=== PATIENT | female | born 1995 | race Caucasian/White ===

== ENCOUNTER 2022-02-18 13:14 | Emergency (ER) | payer BC, SELFPAY ==
[2022-02-18 13:20] VITALS: BP 127/81; PULSE 73; RESP 16; TEMP 37; O2SAT 97; BMI 33.5
--- NOTE | 2022-02-18 13:55 | HMH.EDGENADL ---
Discharge Plan Disposition Patient Disposition: Home, Self-Care Condition: Good Chief Complaint: Headache Referrals Follow up/Referrals: Casimiro Kearney APRN [Primary Care Provider] - See instructions Clinical Impressions Clinical Impression: Migraine Instructions Patient Instructions: DI for Migraine Discharge ED Provider: Enrique Avery General Adult HPI General Chief complaint: Headache Stated complaint: miagraine Time Seen by Provider: 02/18/22 13:20 Mode of Arrival: Ambulatory Source of Information: Patient Limitations: No Limitations Description of Symptoms (Recalled from ER Triage Doc. by RN): pt reports migraine x3 days, pt reports took 2 imitrex tablets on of this week with no relieft. Pt reports n/v, light/sound sensitivity and no appetite. History of Present Illness HPI narrative: 26-year-old female past history of migraines, postconcussive syndrome, pseudotumor cerebri, not currently on maintenance medication, states she has a procedure scheduled for next month to address that. She states she gets intermittent migraines, presents with 3 days of global headache that is typical of her usual migraines associated with nausea, photophobia and sound sensitivity. Denies neck pain, fevers, chills, any recent trauma, change in vision. She took 2 Imitrex tablets on with no relief. Related Data Allergies Allergy/AdvReac Type Severity Reaction Status Date / Time No Known Allergies Allergy Unverified 02/06/17 14:07 [facility] Disclaimer: The information contained in this section may have been updated after the patient was seen, as this information can be updated by other users. Social History Smoking Status: Never smoker alcohol intake: former current occupational status: other Travel in the last 8 weeks: None ROS Obtained: Yes Systems reviewed as appropriate & no additional complaints except as documented Constitutional Constitutional: Reports system reviewed and no additional complaints, except as documented Eyes Eyes: Reports system reviewed and no additional complaints, except as documented ENT Ears, Nose, Mouth, and Throat: Reports system reviewed and no additional complaints, except as documented Cardiovascular Cardiovascular: Reports system reviewed and no additional complaints, except as documented Respiratory Respiratory: Reports system reviewed and no additional complaints, except as documented Gastrointestinal Gastrointestingal: Reports system reviewed and no additional complaints, except as documented Genitourinary Female Genitourinary: Reports system reviewed and no additional complaints, except as documented Musculoskeletal Musculoskeletal: Reports system reviewed and no additional complaints, except as documented Integumentary/Breasts Skin/Breast: Reports system reviewed and no additional complaints, except as documented Neurologic Neurologic: Reports system reviewed and no additional complaints, except as documented Endocrine Endocrine: Reports system reviewed and no additional complaints, except as documented Hematologic/Lymphatic Henatologic/Lymphatic: Reports system reviewed and no additional complaints, except as documented Allergic/Immunologic Allergic/Immunologic: Reports system reviewed and no additional complaints, except as documented Physical Exam General General appearance: alert and in no apparent distress Head Head exam: atraumatic, normocephalic and normal inspection Eye Eye exam: Present normal appearance, PERRL and EOMI ENT ENT exam: Present normal exam, normal oropharynx, mucous membranes moist, TM's normal bilaterally and normal external ear exam Neck Neck exam: Present normal inspection, full ROM and trachea midline; Absent meningismus or lymphadenopathy Chest Chest inspection: Present normal inspection and symmetric chest wall rise; Absent tenderness Respiratory Respiratory exam:
[2022-02-18 14:00] VITALS: BP 135/82; PULSE 76; RESP 16; O2SAT 96
[2022-02-18 14:31] VITALS: BP 115/75; PULSE 60; RESP 16; O2SAT 96
[2022-02-18 15:01] VITALS: BP 122/75; PULSE 63; RESP 15; O2SAT 98
[2022-02-18 15:30] VITALS: BP 132/82; PULSE 76; RESP 16; O2SAT 100
--- NOTE | 2022-02-18 16:03 | PC.NURSE ---
pt reports feeling better, sitting up on side of the bed
[2022-02-18 16:10] VITALS: BP 132/82; PULSE 76; RESP 16; TEMP 37; O2SAT 100
== END 2022-02-18 16:10 | disposition home or self-care (01) ==
PROVIDERS: Emergency Provider Emergency Medicine; PCP Nurse Practitioner Family
DX: G43.909 Migraine, unspecified, not intractable, without status migrainosus (principal); R11.2 Nausea with vomiting, unspecified; H53.149 Visual discomfort, unspecified; G93.2 Benign intracranial hypertension
CPT/HCPCS: 96361; 96374; 96375; 99284

== ENCOUNTER 2022-04-25 19:50 | Emergency (ER) | payer BC, SELFPAY ==
--- NOTE | 2022-04-25 19:52 | ECG_ITS ---
APPROVED REPORT Exam: Resting ECG HR:84 bpm ECG Measurements Heart Rate 84 AXES MN 167 P 69 QRSd 98 QRS 72 QT 370 T 20 QTc 411 Conclusion SINUS RHYTHM NONSPECIFIC ST & T-WAVE ABNORMALITY BORDERLINE ECG UNCONFIRMED REPORT Electronically signed by : Joo Almendarez MD 04/26/2022 17:59:33
[2022-04-25 19:55] VITALS: BP 163/98; PULSE 85; RESP 22; TEMP 36.5; O2SAT 100; BMI 30.7
[2022-04-25 19:58] VITALS: BMI 30.7
--- NOTE | 2022-04-25 19:59 | XR_ITS ---
PROCEDURE INFORMATION: Exam: XR Chest Exam date and time: 04/25/2022 8:18 PM Age: 27 years old Clinical indication: Shortness of breath; Patient HX: PT C/O tachycardia, tingling in hands; Additional info: Dizziness TECHNIQUE: Imaging protocol: Radiologic exam of the chest. Views: 2 views. COMPARISON: CR CXR1 CHEST-PORTABLE 07/04/2015 10:33 PM FINDINGS: Lungs: Unremarkable. No consolidation. Pleural spaces: Unremarkable. No pleural effusion. No pneumothorax. Heart/Mediastinum: Unremarkable. No cardiomegaly. Bones/joints: Unremarkable. IMPRESSION: No acute findings.
[2022-04-25 20:12] VITALS: BP 137/76; BP 141/84; PULSE 80
--- NOTE | 2022-04-25 20:15 | CT_ITS ---
PROCEDURE INFORMATION: Exam: CTA Chest With Contrast Exam date and time: 04/25/2022 8:34 PM Age: 27 years old Clinical indication: Shortness of breath; Patient HX: PT C/O tachycardia, tingling in hands; Additional info: Shortness of air TECHNIQUE: Imaging protocol: Computed tomographic angiography of the chest with contrast. 3D rendering (Not supervised by radiologist): MIP and/or 3D reconstructed images were created by the technologist. Radiation optimization: All CT scans at this facility use at least one of these dose optimization techniques: automated exposure control; mA and/or kV adjustment per patient size (includes targeted exams where dose is matched to clinical indication); or iterative reconstruction. Contrast material: ISOVUE; Contrast volume: 70 ml; Contrast route: INTRAVENOUS (IV); REPORTING DATA: Count of CT and Cardiac NM exams in prior 12 months: This patient has received 0 known CTs and 0 known cardiac nuclear medicine studies in the 12 months prior to the current study. COMPARISON: CR XR CHEST 2V 04/25/2022 8:18 PM FINDINGS: Pulmonary arteries: Normal. No pulmonary emboli. Aorta: Unremarkable. No aortic aneurysm. No aortic dissection. Lungs: Unremarkable. No consolidation. No masses. Pleural spaces: Unremarkable. No pneumothorax. No pleural effusion. Heart: Unremarkable. No cardiomegaly. No pericardial effusion. Lymph nodes: Unremarkable. No enlarged lymph nodes. Bones/joints: Unremarkable. No acute fracture. Soft tissues: Unremarkable. IMPRESSION: No acute findings.
[2022-04-25 20:17] VITALS: BP 137/76; PULSE 92; RESP 12; O2SAT 96
[2022-04-25 20:17] LABS: Eosinophils % 0.9 % (0.1-12.0); Hematocrit 43.6 % (37.0-47.0); Lymphocytes # 1.4 K/mm3 (0.7-4.5); Lymphocytes % 31.6 % (10-50); Mean Corpuscular HGB Conc 34.4 g/dL (31.8-35.4); Mean Corpuscular Hemoglobin 29.3 pg (27.0-31.2); Mean Corpuscular Volume 84.9 fl (81-99); Mean Platelet Volume 9.2 fl (7.4-10.4); Monocytes # 0.3 K/mm3 (0.1-1.0); Monocytes % 7.8 % (1.7-9.3); Neutrophils # 2.5 K/mm3 (1.8-7.8); Neutrophils % 58.6 % (37.0-80.0); Platelet Count 267 K/mm3 (142-424); Red Blood Count 5.13 M/mm3 (4.20-5.40); Red Cell Distribution Width 13.5 % (11.5-17.5); White Blood Count 4.3 K/mm3 (4.8-10.8)
[2022-04-25 20:18] LABS: Chloride 100 mmol/L (98-107); Sodium 140 mmol/L (136-145)
[2022-04-25 20:21] VITALS: BP 151/97; PULSE 107
[2022-04-25 20:21] LABS: Alanine Aminotransferase 99 U/L (12-78); Alkaline Phosphatase 74 U/L (38-126); Aspartate Amino Transferase 74 U/L (14-36); Bilirubin,Total 1.8 mg/dl (0.2-1.3); Blood Urea Nitrogen 9 mg/dl (7-17); Creatinine Clearance Estimated 194 mL/min (50-200); Estimated Glomerular Filt Rate 102 ml/min (>60); GFR (African American) 123 ML/MIN (>60)
[2022-04-25 20:22] LABS: Albumin Level 4.7 g/dl (3.5-5.0); Albumin/Globulin Ratio 1.5 (1.1-1.8); Anion Gap 13.9 mEq/L (5-15); Calcium 9.4 mg/dl (8.4-10.2); Carbon Dioxide 29 mmol/L (22.0-30.0); Globulin 3.1 g/dL (1.3-3.2); Glucose 101 mg/dl (74-100); Total Protein,Serum 7.8 g/dl (6.3-8.2)
--- NOTE | 2022-04-25 20:22 | HMH.EDSYNC ---
Discharge Plan Disposition Patient Disposition: Home, Self-Care Chief Complaint: Syncope Prescriptions Prescriptions: No Action omeprazole 10 mg Capsule,Delayed Release(Dr/Ec) 10 mg PO BID iron 18 mg Tablet 18 mg PO DAILY calcium citrate 1,000 mg Tablet 1,200 mg PO DAILY cholecalciferol (vitamin D3) [Vitamin D3] 125 mcg (5,000 unit) Tablet 125 mcg PO DAILY mecobalamin (vitamin B12) [B12 Active] 1,000 mcg Tablet,Chewable 1,000 mcg PO DAILY Referrals Follow up/Referrals: Provider,Referral, MD [Referring] - See instructions Clinical Impressions Clinical Impression: Vasovagal syncope Instructions Patient Instructions: DI for Syncope in Adults (Fainting) Discharge ED Provider: Herman (ED)Jad Syncope HPI General Chief Complaint: Syncope Stated Complaint: heart racing Time Seen by Provider: 04/25/22 20:22 Mode of Arrival: Ambulatory Source of Information: Patient and Medical Record Limitations: No Limitations Description of Symptoms (Recalled from ER Triage Doc. by RN): pt c/o a racing heart, multiple syncopal episodes (the last was a few hours ago), SOA, tingling hands, and epistaxis (last episode around 1400 while working out). pt reports she had a gastric sleeve 03/16/22 at [facility] [address] Dr. Ambriz. pt states syhe has had heavy vaginal bleeding since 2d post op. pt spoke with her surgeon regarding this whom was not concerned. pt reports she had a follow up last wk and her platelets and wbc was low. History of Present Illness HPI narrative: episodes of ht racing and has near syncopal episodes - had recent surg 03/13 gastric sleeve - has reported vag bleeding - no chest pain and has some sob MD complaint: almost passed out Onset (ago): day(s) Prodromal symptoms: palpitations Current symptoms: back to baseline Related Data Home Medications Medication Instructions Recorded Confirmed calcium citrate 1,000 mg tablet 1,200 mg PO DAILY vitamin 04/25/22 04/25/22 cholecalciferol (vitamin D3) 125 125 mcg PO DAILY vitamin 04/25/22 04/25/22 mcg (5,000 unit) tablet (Vitamin D3) iron 18 mg tablet 18 mg PO DAILY vitamin 04/25/22 04/25/22 mecobalamin (vitamin B12) 1,000 1,000 mcg PO DAILY vitamin 04/25/22 04/25/22 mcg chewable tablet (B12 Active) omeprazole 10 mg capsule,delayed 10 mg PO BID Heartburn 04/25/22 04/25/22 release Allergies Allergy/AdvReac Type Severity Reaction Status Date / Time buspirone [From BuSpar] Allergy Hallucinati Verified 04/25/22 20:05 ng hydromorphone [From Dilaudid] Allergy Hallucinati Verified 04/25/22 20:05 ng promethazine [From Phenergan] Allergy Vomiting Verified 04/25/22 20:05 PFSH [facility] Disclaimer: The information contained in this section may have been updated after the patient was seen, as this information can be updated by other users. Social History (Updated 02/18/22 @ 15:28 by Enrique Avery MD) Smoking Status: Never smoker alcohol intake: former current occupational status: other Travel in the last 8 weeks: None ROS Obtained: Yes All systems reviewed & no additional complaints except as documented Physical Exam General General appearance: alert Head Head exam: normocephalic Eye Eye exam: Present PERRL and EOMI; Absent scleral icterus ENT ENT exam: Present mucous membranes moist and other (no evid of tongue biting ) Neck Neck exam: Present trachea midline Respiratory Respiratory exam: Present normal lung sounds bilaterally; Absent respiratory distress Cardiovascular Cardiovascular exam: Present regular rate and systolic murmur Abdominal Exam Abdominal exam: Present soft Extremities Exam Extremities exam: Present full ROM; Absent calf tenderness Neurological Exam Neurological exam: Present alert, oriented X3 and CN II-XII intact; Absent motor sensory deficit Psychiatric Psychiatric exam: Present normal affect Skin Skin exam: Absent rash Medical Decision Making Medical Records Medic
[2022-04-25 20:23] LABS: Potassium 2.9 mmoL/L (3.5-5.1)
[2022-04-25 20:45] LABS: Troponin I < 0.01 ng/ml (0.00-0.034)
[2022-04-25 20:53] LABS: Thyroid Stimulating Hormone 4.84 uIU/mL (0.465-4.68)
[2022-04-25 21:00] VITALS: BP 133/84; PULSE 78; RESP 21; O2SAT 97
[2022-04-25 21:35] VITALS: BP 132/82; PULSE 77; RESP 18; TEMP 36.6; O2SAT 99
[2022-04-25 21:42] LABS: Magnesium 1.8 mg/dl (1.6-2.3)
== END 2022-04-25 22:19 | disposition home or self-care (01) ==
PROVIDERS: Emergency Provider Emergency Medicine; PCP Nurse Practitioner Family
DX: R55 Syncope and collapse (principal)
CPT/HCPCS: 71046; 71275; 80053; 83735; 84436; 84443; 84484; 85025; 93005; 93225; 93226; 96361; 96374; 99285; J2405; Q9967

== ENCOUNTER 2022-08-07 11:30 | Emergency (ER) | payer BC, SELFPAY ==
[2022-08-07] VITALS (7 sets, daily range): BP systolic 117–144; BP diastolic 71–87; PULSE 56–79; RESP 17–20; TEMP 36.7–36.9; O2SAT 98–100; BMI 24.0
--- NOTE | 2022-08-07 11:32 | ECG_ITS ---
APPROVED REPORT Exam: Resting ECG HR:72 bpm ECG Measurements Heart Rate 72 AXES DC 160 P 78 QRSd 96 QRS 91 QT 392 T 84 QTc 416 Conclusion SINUS RHYTHM BORDERLINE RIGHT AXIS DEVIATION [QRS AXIS > 90] BORDERLINE ECG UNCONFIRMED REPORT Electronically signed by : Joo Almendarez MD 08/07/2022 17:10:54
[2022-08-07 12:00] LABS: Basophils % 0.4 % (0.1-2.0); Eosinophils % 0.7 % (0.1-12.0); Hematocrit 38.2 % (37.0-47.0); Hemoglobin 13.1 g/dL (12.2-16.2); Lymphocytes # 1.4 K/mm3 (0.7-4.5); Mean Corpuscular HGB Conc 34.4 g/dL (31.8-35.4); Mean Corpuscular Hemoglobin 30.2 pg (27.0-31.2); Mean Corpuscular Volume 87.8 fl (81-99); Mean Platelet Volume 8.5 fl (7.4-10.4); Monocytes # 0.3 K/mm3 (0.1-1.0); Monocytes % 5.7 % (1.7-9.3); Neutrophils # 3.3 K/mm3 (1.8-7.8); Neutrophils % 66.2 % (37.0-80.0); Platelet Count 208 K/mm3 (142-424); Red Blood Count 4.35 M/mm3 (4.20-5.40); Red Cell Distribution Width 13.1 % (11.5-17.5)
--- NOTE | 2022-08-07 12:00 | PC.NURSE ---
DR LONG AT BEDSIDE
--- NOTE | 2022-08-07 12:05 | PC.NURSE ---
MATTHEW ROWLAND at
[2022-08-07 12:06] LABS: Chloride 105 mmol/L (98-107); Lactic Acid 1.8 mmol/L (0.7-2.1); Potassium 3.2 mmoL/L (3.5-5.1); Sodium 143 mmol/L (136-145)
--- NOTE | 2022-08-07 12:06 | US_ITS ---
PROCEDURE INFORMATION: Exam: US Duplex Artery and Vein of the Abdominal and/or Reproductive Organs. Complete Ovaries Exam date and time: 08/07/2022 12:26 PM Age: 27 years old Clinical indication: Pelvic pain and other: Back; Prior surgery; Surgery date: 6+ months; Surgery type: Lt ov removed-- 2 csections; Patient HX: Rlq pain-- apendix and gb removed; Additional info: Rule out torsion, abd pain radiating to back TECHNIQUE: Imaging protocol: Real-time duplex ultrasound scan of the arterial and venous flow with color Doppler flow and spectral waveform analysis with image documentation. Complete duplex exam focused on the ovaries. Duplex exam was performed to evaluate for torsion and other vascular conditions. COMPARISON: CT ANGIO CHEST PE PROTOCOL 04/25/2022 8:34 PM FINDINGS: Right ovary/adnexa: Normal duplex of the ovary. Normal Doppler waveforms and color flow. Arterial and venous flow are normal. No evidence of ovarian torsion. Left ovary/adnexa: Normal duplex of the ovary. Normal Doppler waveforms and color flow. Arterial and venous flow are normal. No evidence of ovarian torsion. IMPRESSION: No evidence of ovarian torsion. PROCEDURE INFORMATION: Exam: US Pelvis, Transvaginal Exam date and time: 08/07/2022 12:26 PM Age: 27 years old Clinical indication: Pelvic pain and other: Back; Prior surgery; Surgery date: 6+ months; Surgery type: Lt ov removed-- 2 csections; Patient HX: Rlq pain-- apendix and gb removed; Additional info: Rule out torsion, abd pain radiating to back TECHNIQUE: Imaging protocol: Real-time transvaginal pelvic ultrasound with image documentation. Transvaginal imaging was used for better evaluation of the endometrium, adnexa, and/or cervix. COMPARISON: No relevant prior studies available. FINDINGS: Uterus: Uterus is normal in size and echotexture for age. scar incidentally noted. Endometrial stripe thickness is within normal limits for age. Small amount of complex fluid within the endometrial canal compatible with blood products, within normal limits for age. Color Doppler demonstrates no abnormal vascularity within the endometrial canal. Right ovary/adnexa: Right ovary is normal in size and echotexture. Color and spectral Doppler demonstrates normal ovarian arterial and venous blood flow. Left ovary/adnexa: Left ovary was not visualized. Intraperitoneal space: Trace simple, low-density free fluid in the pelvis, likely physiologic. IMPRESSION: No acute findings. No evidence of ovarian torsion.
--- NOTE | 2022-08-07 12:07 | PC.NURSE ---
notified rad staff of / order
[2022-08-07 12:08] LABS: Blood Urea Nitrogen 13 mg/dl (7-17); Creatinine Clearance Estimated 177 mL/min (50-200); Estimated Glomerular Filt Rate 122 ml/min (>60); GFR (African American) 147 ML/MIN (>60)
[2022-08-07 12:09] LABS: Alanine Aminotransferase 28 U/L (12-78); Albumin Level 4.7 g/dl (3.5-5.0); Albumin/Globulin Ratio 1.7 (1.1-1.8); Alkaline Phosphatase 60 U/L (38-126); Anion Gap 17.2 mEq/L (5-15); Aspartate Amino Transferase 28 U/L (14-36); Bilirubin,Total 2.1 mg/dl (0.2-1.3); Calcium 9.4 mg/dl (8.4-10.2); Carbon Dioxide 24 mmol/L (22.0-30.0); Globulin 2.7 g/dL (1.3-3.2); Glucose 94 mg/dl (74-100); Lipase 61 U/L (23-300); Total Protein,Serum 7.4 g/dl (6.3-8.2)
--- NOTE | 2022-08-07 12:12 | PC.NURSE ---
pt ambulatory to restroom without complications.
--- NOTE | 2022-08-07 12:17 | HMH.EDGENADL ---
Discharge Plan Disposition Patient Disposition: Home, Self-Care Condition: Good Chief Complaint: Syncope Prescriptions Prescriptions: No Action omeprazole 10 mg Capsule,Delayed Release(Dr/Ec) 10 mg PO BID iron 18 mg Tablet 18 mg PO DAILY calcium citrate 1,000 mg Tablet 1,200 mg PO DAILY cholecalciferol (vitamin D3) [Vitamin D3] 125 mcg (5,000 unit) Tablet 125 mcg PO DAILY mecobalamin (vitamin B12) [B12 Active] 1,000 mcg Tablet,Chewable 1,000 mcg PO DAILY Referrals Follow up/Referrals: Fabián Dorantes APRN [Primary Care Provider] - See instructions Activity Restrictions/Add. Instructions Additional Instructions/Restrictions: Take Tylenol 1000 mg every 6 hours (4 times daily) and ibuprofen 400 mg every 6 hours (4 times daily) as needed with food and water to prevent GI upset and kidney damage. Follow-up with your family doctor and/your [facility] for further characterization of abdominal pain. If you have any other concerning signs or symptoms, return to the ER for further evaluation. Clinical Impressions Clinical Impression: Abdominal pain Qualifiers: Abdominal location: left lower quadrant Qualified Code(s): R10.32 - Left lower quadrant pain Instructions Patient Instructions: DI for Syncope in Adults (Fainting), DI for Syncope in Children (Fainting) Discharge ED Provider: [place] General Adult HPI General Chief complaint: Syncope Stated complaint: abd pain Time Seen by Provider: 08/07/22 11:44 Mode of Arrival: EMS Limitations: No Limitations Description of Symptoms (Recalled from ER Triage Doc. by RN): PT BROUGHT IN VIA EMS FOR SEVERE ABDOMINAL PAIN AND 2 EPISODES OF SYNCOPE THIS AM. PT REPORTS CURRENTLY ON MENSTRUAL CYCLE, 2 WEEKS EARLY WITH ABNORMAL HEAVY VAGINAL BLEEDING. History of Present Illness HPI narrative: This is a 27-year-old female with history of gastric sleeve procedure in 2022, cholecystectomy, appendectomy, ovarian cyst/torsion, pseudotumor (resolved since gastric surgery), bilateral salpingectomy, left (?) Oophorectomy, presenting with abdominal pain. Patient states that she has had abdominal pain starting 2 days prior to arrival. Today, 08/07, it got acutely worse. It was 10 out of 10, left-sided and radiated through to her left flank. Associated with nausea without vomiting. Patient had syncopal episode, but remembers the entire incident. Denies any head trauma. Was brought to the ER for further evaluation. Dysuria without hematuria. Patient has had symptoms similar to this with previous periods, as well as with ovarian cyst rupture. Has been saturating about 1 pad per hour for the past 1 to 2 days. No other relevant history. Related Data Home Medications Medication Instructions Recorded Confirmed calcium citrate 1,000 mg tablet 1,200 mg PO DAILY vitamin 04/25/22 04/25/22 cholecalciferol (vitamin D3) 125 125 mcg PO DAILY vitamin 04/25/22 04/25/22 mcg (5,000 unit) tablet (Vitamin D3) iron 18 mg tablet 18 mg PO DAILY vitamin 04/25/22 04/25/22 mecobalamin (vitamin B12) 1,000 1,000 mcg PO DAILY vitamin 04/25/22 04/25/22 mcg chewable tablet (B12 Active) omeprazole 10 mg capsule,delayed 10 mg PO BID Heartburn 04/25/22 04/25/22 release Allergies Allergy/AdvReac Type Severity Reaction Status Date / Time buspirone [From BuSpar] Allergy Hallucinati Verified 04/25/22 20:05 ng hydromorphone [From Dilaudid] Allergy Hallucinati Verified 04/25/22 20:05 ng promethazine [From Phenergan] Allergy Vomiting Verified 04/25/22 20:05 PFSH [facility]SH Disclaimer: The information contained in this section may have been updated after the patient was seen, as this information can be updated by other users. Surgical History (Updated 08/07/22 @ 11:48 by Nataly Kelly RN) H/O bilateral salpingectomy H/O section H/O gastric sleeve H/O oophorectomy Hx of appendectomy Hx of cholecystectomy Hx of tonsillectomy Family History (Upd
--- NOTE | 2022-08-07 12:19 | PC.NURSE ---
pt ambulatory back from restroom without complications; no needs at this time. UA sent to lab. Spouse at BS
--- NOTE | 2022-08-07 12:21 | PC.NURSE ---
PT TO RADIOLOGY FOR U/S AT THIS TIME
[2022-08-07 12:25] LABS: Microscopic, Urine URINE MICROSCOPIC (MICROSCOPIC)
[2022-08-07 12:26] LABS: Urine Pregnancy, HCG Qual. Negative (Negative)
[2022-08-07 12:27] LABS: Appearance,Urine CLEAR (Clear); Blood, Urine Negative (Negative); Glucose,Urine (UA) Negative (Negative); Ketones,Urine 1+ (Negative); Leukocyte Esterase,Urine Negative (Negative); Nitrate,Urine POSITIVE (Negative); PH,Urine 5.5 (5.0-8.5); Protein,Urine TRACE (Negative); Specific Gravity, Urine >= 1.030 (1.005-1.030); Urobilinogen,Urine >=8.0 EU/dl (0.2)
[2022-08-07 12:29] LABS: Bilirubin,Urine 2+ (Negative); Color,Urine ORANGE (Yellow)
[2022-08-07 12:37] LABS: Bacteria,Urine 1+ /lpf; Calcium Oxalate Crystals,Urine Trace /lpf; Mucus,Urine 3+ /lpf; RBC,Urine Occasional #/hpf (0-3)
--- NOTE | 2022-08-07 12:51 | CT_ITS ---
FINAL REPORT TECHNIQUE: After the administration of intravenous contrast, axial images were obtained through the abdomen and pelvis by computed tomography. The study was performed with techniques to keep radiation dose as low as reasonably achievable, (ALARA). Individual dose reduction techniques using automated exposure control or adjustment of mA and/or kV according to the patient's size were employed. CLINICAL HISTORY: abd pain and syncope FINDINGS: Abdomen: The lung bases are clear. The liver parenchyma is homogeneous. There is some relative decreased attenuation in anterior left lobe of the liver which may be due to perfusion anomaly or focal fatty infiltration. The gallbladder is present. The spleen, pancreas, adrenals and kidneys appear unremarkable. The aorta is normal in caliber. There is no free fluid or adenopathy. Gastric sleeve is present. Pelvis: The appendix is not identified. The urinary bladder is unremarkable. The uterus is anteverted. There is a moderate amount of stool in the colon. There are postoperative changes in the right lower quadrant. There is no free fluid or adenopathy. IMPRESSION: Moderate constipation. Postoperative changes from gastric sleeve. Reviewed, Interpreted and Dictated by Jorge L Ortega MD Transcribed by Lorena Marrufo Authenticated and . [facility]
--- NOTE | 2022-08-07 13:14 | PC.NURSE ---
PT TO CT
--- NOTE | 2022-08-07 13:27 | PC.NURSE ---
PT from CT
--- NOTE | 2022-08-07 13:45 | PC.NURSE ---
ROUNDED ON PT, MEDICATED PER EMAR. UPDATED ON POC. NO NEEDS VOICED
--- NOTE | 2022-08-07 13:53 | PC.NURSE ---
Rounded on patient; spouse at BS, no needs at this time and are aware we are still waiting on test results at this time.
--- NOTE | 2022-08-07 14:39 | PC.NURSE ---
Called [facility] to reach the Radiologist that read report for a question. Awaiting call back
--- NOTE | 2022-08-07 14:51 | PC.NURSE ---
Dr. Ely speaking with Radiologist, Jorge L Ortega at this time
--- NOTE | 2022-08-07 15:14 | PC.NURSE ---
DR LONG AT BEDSIDE
== END 2022-08-07 15:35 | disposition home or self-care (01) ==
PROVIDERS: Emergency Provider Emergency Medicine; PCP Nurse Practitioner Family
DX: R10.32 Left lower quadrant pain (principal); R55 Syncope and collapse
CPT/HCPCS: 74177; 76830; 80053; 81001; 81025; 83605; 83690; 85025; 93005; 96361; 96374; 96375; 99285; J0696; J2405; Q9967

== ENCOUNTER 2022-10-15 23:49 | Day surgery (SDC) | payer BC, SELFPAY ==
[2022-10-15 23:50] VITALS: BP 134/86; PULSE 69; RESP 18; TEMP 36.8; O2SAT 97; BMI 22.3
[2022-10-16] VITALS (26 sets, daily range): BP systolic 93–133; BP diastolic 54–87; PULSE 39–101; RESP 12–20; TEMP 36.1–36.6; O2SAT 94–100
--- NOTE | 2022-10-16 00:20 | CT_ITS ---
PROCEDURE INFORMATION: Exam: CT Abdomen And Pelvis With Contrast Exam date and time: 10/16/2022 12:52 AM Age: 27 years old Clinical indication: Abdominal pain; Additional info: Lower abd pain, HX gastric sleeve/oopharectomy TECHNIQUE: Imaging protocol: Computed tomography of the abdomen and pelvis with contrast. Radiation optimization: All CT scans at this facility use at least one of these dose optimization techniques: automated exposure control; mA and/or kV adjustment per patient size (includes targeted exams where dose is matched to clinical indication); or iterative reconstruction. Contrast material: ISOVUE; Contrast volume: 75 ml; Contrast route: IV; REPORTING DATA: Count of CT and Cardiac NM exams in prior 12 months: This patient has received 2 known CTs and 0 known cardiac nuclear medicine studies in the 12 months prior to the current study. COMPARISON: CT ABDOMEN PELVIS W CON 08/07/2022 1:21 PM FINDINGS: Lungs: Clear basilar lung parenchyma. Pleural spaces: No pleural fluid. Heart: Normal heart size. Liver: Focal fat noted along the falciform ligament. Gallbladder and bile ducts: Prior cholecystectomy. No biliary tree dilation or high-density retained stones appreciated. Pancreas: Normal. No ductal dilation. Spleen: Normal. No splenomegaly. Adrenal glands: Normal configuration. Kidneys and ureters: No evidence of obstruction. No visible inflammation. Stomach and bowel: Prior gastric sleeve procedure. Normal caliber small bowel. Appendix: Prior appendectomy. Intraperitoneal space: Moderate volume slightly hyperdense pelvic free fluid is compelling for blood. Vasculature: Normal caliber arterial structures. Lymph nodes: No enlarged lymph nodes. Urinary bladder: Unremarkable as visualized. Reproductive: Enhancing crenulated cyst in the right ovary is compatible with recently ruptured follicle. Bones/joints: No fracture or destructive lesion. Soft tissues: A small contrast blush anterior to the collapsing follicle is concerning for active bleeding. IMPRESSION: Exam demonstrates a recently ruptured right ovarian follicle with adjacent low volume hemoperitoneum. There is also a contrast blush adjacent to the ovary concerning for active bleeding.
[2022-10-16 00:26] LABS: Microscopic, Urine URINE MICROSCOPIC (MICROSCOPIC)
[2022-10-16 00:28] LABS: Appearance,Urine SL CLOUDY (Clear); Bilirubin,Urine Negative (Negative); Blood, Urine TRACE-I (Negative); Color,Urine YELLOW (Yellow); Glucose,Urine (UA) Negative (Negative); Ketones,Urine TRACE (Negative); Leukocyte Esterase,Urine 1+ (Negative); Nitrate,Urine Negative (Negative); Protein,Urine 2+ (Negative); Specific Gravity, Urine >= 1.030 (1.005-1.030)
[2022-10-16 00:30] LABS: Basophils % 0.5 % (0.1-2.0); Eosinophils # 0.1 K/mm3 (0.0-0.4); Eosinophils % 1.7 % (0.1-12.0); Hemoglobin 13.6 g/dL (12.2-16.2); Lymphocytes # 2.1 K/mm3 (0.7-4.5); Lymphocytes % 43.6 % (10-50); Mean Corpuscular HGB Conc 33.1 g/dL (31.8-35.4); Mean Corpuscular Hemoglobin 30.2 pg (27.0-31.2); Mean Corpuscular Volume 91.1 fl (81-99); Mean Platelet Volume 8.1 fl (7.4-10.4); Monocytes # 0.2 K/mm3 (0.1-1.0); Monocytes % 4.5 % (1.7-9.3); Neutrophils # 2.4 K/mm3 (1.8-7.8); Neutrophils % 49.7 % (37.0-80.0); Platelet Count 180 K/mm3 (142-424); Red Blood Count 4.49 M/mm3 (4.20-5.40); Red Cell Distribution Width 12.3 % (11.5-17.5); White Blood Count 4.9 K/mm3 (4.8-10.8)
[2022-10-16 00:35] LABS: Alanine Aminotransferase 31 U/L (12-78); Albumin Level 5.2 g/dl (3.5-5.0); Albumin/Globulin Ratio 1.4 (1.1-1.8); Alkaline Phosphatase 57 U/L (38-126); Anion Gap 16.3 mEq/L (5-15); Aspartate Amino Transferase 34 U/L (14-36); Blood Urea Nitrogen 15 mg/dl (7-17); Calcium 9.8 mg/dl (8.4-10.2); Carbon Dioxide 27 mmol/L (22.0-30.0); Chloride 104 mmol/L (98-107); Creatinine Clearance Estimated 141 mL/min (50-200); Estimated Glomerular Filt Rate 102 ml/min (>60); GFR (African American) 123 ML/MIN (>60); Globulin 3.6 g/dL (1.3-3.2); Glucose 93 mg/dl (74-100); Lipase 71 U/L (23-300); Potassium 3.3 mmoL/L (3.5-5.1); Sodium 144 mmol/L (136-145); Total Protein,Serum 8.8 g/dl (6.3-8.2)
[2022-10-16 00:42] LABS: Urine Pregnancy, HCG Qual. Negative (Negative)
[2022-10-16 00:54] LABS: Bacteria,Urine 1+ /lpf; RBC,Urine Occasional #/hpf (0-3); Squamous Epithelial Cell,Urine Occasional #/hpf (0-5)
--- NOTE | 2022-10-16 01:11 | HMH.EDGENADL ---
Discharge Plan Disposition Patient Disposition: Home, Self-Care Condition: Good Prescriptions Prescriptions: New cefdinir 300 mg capsule 300 mg PO BID 5 Days Qty: 10 0RF ondansetron HCl 4 mg tablet 4 mg PO Q8H PRN (Reason: nausea and vomiting) 5 Days Qty: 30 0RF ibuprofen 800 mg tablet 800 mg PO Q8H PRN (Reason: pain) Qty: 20 0RF hydrocodone-acetaminophen 5-325 mg tablet 1 tab PO Q6H PRN (Reason: pain) Qty: 8 0RF Continued omeprazole 10 mg Capsule,Delayed Release(Dr/Ec) 10 mg PO BID iron 18 mg Tablet 18 mg PO DAILY calcium citrate 1,000 mg Tablet 1,200 mg PO DAILY cholecalciferol (vitamin D3) [Vitamin D3] 125 mcg (5,000 unit) Tablet 125 mcg PO DAILY mecobalamin (vitamin B12) [B12 Active] 1,000 mcg Tablet,Chewable 1,000 mcg PO DAILY Referrals Follow up/Referrals: Fabián Dorantes APRN [Primary Care Provider] - 11/03/22 10:00 am Jessi Em DO [Staff Physician] - 10/27/22 8:45 am () Activity Restrictions/Add. Instructions Additional Instructions/Restrictions: Pelvic rest - Nothing in the vagina for 2 weeks. Clinical Impressions Clinical Impression: Hemorrhage of corpus luteum cyst of right ovary, UTI (urinary tract infection), ABLA (acute blood loss anemia), Bradycardia with 31-40 beats per minute Instructions Patient Instructions: DI for Acute Abdominal Pain Discharge ED Provider: Parker Ravi Adult HPI General Chief complaint: Abdominal Pain Stated complaint: Abd Pain,swelling,dizziness Time Seen by Provider: 10/16/22 00:00 Mode of Arrival: Ambulatory Source of Information: Patient Limitations: No Limitations Description of Symptoms (Recalled from ER Triage Doc. by RN): Pt presents with complaints of abdominal pain associated with nausea since , which worsened today with episodes of dizziness and pain radiating to right leg. Pt has hx of ovarian cysts, appendectomy, cholecystectomy, and removal of left ovary. Pt hs follow up with OB Dr Silva for possible dx of endometriosis. History of Present Illness HPI narrative: 27-year-old female history of gastric sleeve in February, prior appendectomy, cholecystectomy, bilateral salpingectomy, unilateral oophorectomy (unsure which side) presents with bilateral lower abdominal pain and distention for the last 4 days. Patient reports that she is approximately 1 or 2 weeks late on her menstrual cycle. She has follow-up with [facility] in the next month for evaluation for endometriosis. She reports some suprapubic pressure but denies any dysuria. No abnormal vaginal discharge or bleeding. No change in bowel movements, she has daily soft stools. No reported fever. She patient is having nausea but has only vomited once since when symptoms began. Related Data Home Medications Medication Instructions Recorded Confirmed calcium citrate 1,000 mg tablet 1,200 mg PO DAILY vitamin 04/25/22 04/25/22 cholecalciferol (vitamin D3) 125 125 mcg PO DAILY vitamin 04/25/22 04/25/22 mcg (5,000 unit) tablet (Vitamin D3) iron 18 mg tablet 18 mg PO DAILY vitamin 04/25/22 04/25/22 mecobalamin (vitamin B12) 1,000 1,000 mcg PO DAILY vitamin 04/25/22 04/25/22 mcg chewable tablet (B12 Active) omeprazole 10 mg capsule,delayed 10 mg PO BID Heartburn 04/25/22 04/25/22 release Previous Rx's Medication Instructions Recorded cefdinir 300 mg capsule 300 mg PO BID 5 days #10 caps 10/16/22 hydrocodone 5 mg-acetaminophen 325 1 tab PO Q6H PRN pain #8 tabs 10/16/22 mg tablet ibuprofen 800 mg tablet 800 mg PO Q8H PRN pain #20 tabs 10/16/22 ondansetron HCl 4 mg tablet 4 mg PO Q8H PRN nausea and 10/16/22 vomiting 5 days #30 tabs Allergies Allergy/AdvReac Type Severity Reaction Status Date / Time buspirone [From BuSpar] Allergy Hallucinati Verified 04/25/22 20:05 ng hydromorphone [From Dilaudid] Allergy Hallucinati Verified 04/25/22 20:05 ng promethazine [From Phenergan] Allergy Vomit
--- NOTE | 2022-10-16 01:41 | PC.NURSE ---
Addendum entered by Kyleigh Walters, EMT 10/16/22 01:46: Dr. Em Original Note: Dr. Ravi speaking with Dr. Marrufo
--- NOTE | 2022-10-16 02:57 | US_ITS ---
PROCEDURE INFORMATION: Exam: US Pelvis, Transvaginal Exam date and time: 10/16/2022 3:23 AM Age: 27 years old Clinical indication: Pelvic pain; Prior surgery; Surgery date: 6+ months; Surgery type: Left ovary removed 2019 due to torsion. 2 prev csections; Additional info: Pain, known hemorragic cyst, concern for torsion LABS AND CLINICAL REPORTS: Last menstrual period start date: 08/31/2022 TECHNIQUE: Imaging protocol: Real-time transvaginal pelvic ultrasound with image documentation. Transvaginal imaging was used for better evaluation of the endometrium, adnexa, and/or cervix. COMPARISON: US TRANSVAGINAL 08/07/2022 12:26 PM FINDINGS: Uterus: Uterus measures 7.8 cm x 4.6 cm x 4.1 cm. Endometrium measures 5 mm in thickness. Anterior uterine indentation at the isthmus is compatible with prior Caesarean section scar. Right ovary/adnexa: Right ovary measures 3.8 x 3.6 x 3.9 cm for a volume of 28 cc. Ovary is expanded by a lobulated cyst compatible with a collapsing follicle. Normal arterial and venous blood flow confirmed. Left ovary/adnexa: Left ovary surgically absent. No left adnexal mass. Intraperitoneal space: Moderate volume complex free fluid. IMPRESSION: Normal blood flow confirmed to the right ovary. Ovary is expanded by a hemorrhagic follicle. Low volume complex pelvic free fluid is compatible with hemoperitoneum.
--- NOTE | 2022-10-16 03:53 | ECG_ITS ---
APPROVED REPORT Exam: Resting ECG HR:48 bpm ECG Measurements Heart Rate 48 AXES OK 163 P 73 QRSd 92 QRS 84 QT 423 T 59 QTc 390 Conclusion SINUS BRADYCARDIA BORDERLINE ECG UNCONFIRMED REPORT Electronically signed by : Joo Almendarez MD 10/17/2022 17:24:03
--- NOTE | 2022-10-16 03:58 | PC.NURSE ---
Pt back from US, reports improvement of pain. Denies any needs at this time
[2022-10-16 05:27] LABS: Hematocrit 32.7 % (37.0-47.0)
[2022-10-16 05:30] LABS: Hemoglobin 10.8 g/dL (12.2-16.2)
--- NOTE | 2022-10-16 05:32 | PC.NURSE ---
Paged Dr Darnell for Dr Ravi. CR
--- NOTE | 2022-10-16 07:00 | EXP.HP ---
History of Present Illness *Admission Date: 10/15/22 *Reason for visit:: Abdominal pain *History of present illness: Mrs Stefany Salgado is a 27 yo P2002 who presented to [facility] Emergency room with complaint of worsening abdominal pain. She reports pain started last and increased yesterday. She admits to nausea and vomiting secondary to the pain. She also reports urinary frequency. She was diagnosed with UTI in the ED. Denies fever/chills. Surgical history significant for gastric sleeve, appendectomy, cholecystectomy, x 2, oophorectomy and bilateral tubal ligation. She reports history of ruptured ovarian cysts in the past. CT scan this morning, at 0052, demonstrates a recently ruptured right ovarian follicle with adjacent low volume hemoperitoneum. There is also a contrast blush adjacent to the ovary concerning for active bleeding. Pain increased requiring pain medication while in the ED. Pelvic ultrasound demonstrated Normal blood flow confirmed to the right ovary. Ovary is expanded by a hemorrhagic follicle. Low volume complex pelvic free fluid is compatible with hemoperitoneum. [facility] Disclaimer: The information contained in this section may have been updated after the patient was seen, as this information can be updated by other users. Surgical History H/O bilateral salpingectomy H/O section H/O gastric sleeve H/O oophorectomy Hx of appendectomy Hx of cholecystectomy Hx of tonsillectomy Family History Other No significant family history Social History Smoking Status: Never smoker alcohol intake: former substance use type: denies use current occupational status: employed Travel in the last 8 weeks: None Review of Systems Review of Systems Review of systems:: pertinent systems reviewed and negative unless documented below *Gastrointestinal Gastrointestinal: Reports as per HPI, Reports abdominal pain, Reports nausea and Reports vomiting *Genitourinary Genitourinary: Reports other (urinary frequency) Meds Home Medications and Allergies Home Medications Medication Instructions Recorded Confirmed Type calcium citrate 1,000 mg tablet 1,200 mg PO DAILY vitamin 04/25/22 04/25/22 History cholecalciferol (vitamin D3) 125 125 mcg PO DAILY vitamin 04/25/22 04/25/22 History mcg (5,000 unit) tablet (Vitamin D3) iron 18 mg tablet 18 mg PO DAILY vitamin 04/25/22 04/25/22 History mecobalamin (vitamin B12) 1,000 1,000 mcg PO DAILY vitamin 04/25/22 04/25/22 History mcg chewable tablet (B12 Active) omeprazole 10 mg capsule,delayed 10 mg PO BID Heartburn 04/25/22 04/25/22 History release cefdinir 300 mg capsule 300 mg PO BID 5 days #10 caps 10/16/22 Rx ondansetron HCl 4 mg tablet 4 mg PO Q8H PRN nausea and 10/16/22 Rx vomiting 5 days #30 tabs New Prescriptions to Start Prescriptions: cefjalilir Parker Ravi ondansetron HCl Parker Ravi Allergies Allergy/AdvReac Type Severity Reaction Status Date / Time buspirone [From BuSpar] Allergy Hallucinati Verified 04/25/22 20:05 ng hydromorphone [From Dilaudid] Allergy Hallucinati Verified 04/25/22 20:05 ng promethazine [From Phenergan] Allergy Vomiting Verified 04/25/22 20:05 Exam Data for Last 24 hours Vital signs and Labs for Last 24 Hours: Temp Pulse Resp BP Pulse Ox O2 Del Method 98.2 F 40 L 16 97/64 L 98 Room Air 10/15/22 23:50 10/16/22 05:30 10/16/22 05:30 10/16/22 05:30 10/16/22 05:30 10/16/22 01:30 Laboratory Results - last 24 hr 10/15/22 23:45: Urine HCG, Qual Negative 10/16/22 00:00: Urine Color Yellow, Urine Appearance Sl cloudy, Urine pH 6.0, Ur Specific [place] >= 1.030, Urine Protein 2+, Urine Glucose (UA) Negative, Urine Ketones Trace, Urine Blood Trace-i, Urine Ni
--- NOTE | 2022-10-16 07:05 | P.PNANES_ITS ---
[facility] Disclaimer: The information contained in this section may have been updated after the patient was seen, as this information can be updated by other users. Surgical History H/O bilateral salpingectomy H/O section H/O gastric sleeve H/O oophorectomy Hx of appendectomy Hx of cholecystectomy Hx of tonsillectomy Family History Other No significant family history Social History Smoking Status: Never smoker alcohol intake: former substance use type: denies use current occupational status: employed Travel in the last 8 weeks: None [facility] Anesthesia Checklist Patient Identification Patient Identification: Arm Band and Verbal (Name & ) Structural Data Admitted From: Home Planned Operative Procedure/s: Laparoscopy Consent for Planned Operative Procedure(s) Verified: Yes Verified Documents: Surgical Consent NPO Status Verified Time NPO: 00:00 Additional verifications Patient : No Airway Assessment Mallampati Score:: Class I Neurological Assessment Level of Consciousness: Awake and Alert Hx Seizures: No Numbness or tingling in extremities: No Anesthesia Plan ASA Class: I Anesthesia Type: General
--- NOTE | 2022-10-16 08:31 | P.PNANES_ITS ---
[facility] Anesthesia Record Part I Anesthesia Record I Intake, IV Amount: 1,100 Hydration: Adequate Estimated blood loss (mL): 0 Urine output (mL): 100 Blood Products used (#): none Blood Pressure: 133/79 SaO2: 94 Pulse Rate: 101 Airway Patency: Patent Respiratory Rate: 12 Temperature: 97 F Patient is:: Awake Stable to PACU at:: 08:30
--- NOTE | 2022-10-16 08:52 | EXP.OP.NOTE ---
Date of procedure: 10/16/22 Pre-op Diagnosis:: 1. Acute abdominal pain 2. UTI 3. Hemoperitoneum suspected on imaging 4. Right ovarian cyst 5. Anemia Post-op Diagnosis:: 1. Acute abdominal pain 2. UTI 3. Hemoperitoneum suspected on imaging 4. Right ovarian cyst 5. Anemia 6. Intrapelvic adhesions between bladder and lower uterine segment Procedure performed:: Laparoscopy, pelvic irrigation Surgeon:: Jessi Em DO Acid Tender(s):: N/a CVT RN:: Other Anesthesia: GETA Estimated blood loss (mL): 0 Clinical Note:: Mrs Stefany Salgado is a 27 yo P2002 who presented to [facility] Emergency room with complaint of worsening abdominal pain. She reports pain started last and increased yesterday. She admits to nausea and vomiting secondary to the pain. She also reports urinary frequency. She was diagnosed with UTI in the ED. Denies fever/chills. Surgical history significant for gastric sleeve, appendectomy, cholecystectomy, x 2, oophorectomy and bilateral tubal ligation. She reports history of ruptured ovarian cysts in the past. CT scan this morning, at 0052, demonstrates a recently ruptured right ovarian follicle with adjacent low volume hemoperitoneum. There is also a contrast blush adjacent to the ovary concerning for active bleeding. Pain increased requiring pain medication while in the ED. Pelvic ultrasound demonstrated Normal blood flow confirmed to the right ovary. Ovary is expanded by a hemorrhagic follicle. Low volume complex pelvic free fluid is compatible with hemoperitoneum. Operative findings:: 1. On bimanual exam, uterus normal size and shape, retroverted. No adnexal masses palpated 2. On laparoscopic exam, liver grossly normal, stomach s/p gastric sleeve, bowels appear grossly normal. Uterus appears inflamed, grossly normal appearing right ovary. Fallopian tubes have been surgically removed. Bladder adhered to lower uterine segment. Cystic fluid in the posterior cul-de-sac. No evidence of blood in the abdomen and pelvis. Operative note:: Risks, benefits and alternatives were discussed with the patient. Risks include but are not limited to bleeding, infection, damage to adjacent structures and VTE. Patient voiced understanding and agreed to proceed with surgery. She was wheeled back to the operating room and placed under general anesthesia without difficulty. She received 1 gram of Ancef preoperatively. She was placed in the dorsal lithotomy position and prepped and draped in normal sterile fashion. Straight catheter was used to drain the bladder. A bimanual exam was performed. A weighted Auvard was placed in the vaginal vault. A single tooth tenaculum was placed on the anterior lip of the cervix. [place] manipulator was inserted into the cervical canal and attached to the tenaculum. Weighted Auvard was removed from the vagina. Attention was then turned to the abdomen. Skin just below the umbilicus was injected with 0.5% marcaine. A 1.5cm infraumbilical incision was made. Veress needle was tested and inserted intrabdominally. Opening pressure was 5 mm Hg. The peritoneal cavity was insulflated to 15 mm Hg. Laparoscope within 11 mm blunt trocar was inserted intrabdominally under direct visualization. Obturator was removed and sleeve left in place. Laparoscope was inserted into the trocar sleeve. Abdomen and pelvis was viewed in its entirety. Examination of the peritoneal cavity revealed no signs of injury from entry and normal anatomic structures. See findings above. Pictures were taken. Bowel was swept cephalad with blunt probe. LLQ port site was transilluminated and injected with 0.5% marcaine. A 5 mm incision was made and 5 mm trocar was inserted intraabdominally under direct laparoscopic visualization. Obturator was removed and sleeve was left in place. Exam was performed. See findings above. Pelvis was irrigated with clear return of fluids. Left lower quadrant trocar was removed under direct laparoscopic visualization. Pneumop
--- NOTE | 2022-10-16 10:02 | P.PNANES_ITS ---
[facility] Disclaimer: The information contained in this section may have been updated after the patient was seen, as this information can be updated by other users. Surgical History H/O bilateral salpingectomy H/O section H/O gastric sleeve H/O oophorectomy Hx of appendectomy Hx of cholecystectomy Hx of tonsillectomy Family History Other No significant family history Social History (Updated 10/16/22 @ 07:06 by Jaja Staples CRNA) Smoking Status: Never smoker alcohol intake: former substance use type: denies use current occupational status: employed Travel in the last 8 weeks: None [facility] Anesthesia Checklist Structural Data Planned Operative Procedure/s: laparoscopy Anesthesia Plan Anesthesia Type: General
--- NOTE | 2022-10-16 10:20 | PC.NURSE ---
Respiratory at bedside holter monitor in place. Extra monitor pads given to pt by respiratory.
--- NOTE | 2022-10-16 14:11 | EXP.ANES.II ---
[facility] Anesthesia Record Part II Anesthesia Record Part II Discharge Time: 09:00 Destination: Surgical Day Care (OP Surgery) PACU nurse assessment reviewed?: Yes Patient Condition:: Good Anesthesia Complications:: None Swallowing reflex intact?: Yes Airway Patency: Patent Cyanosis?: No Blood Pressure: 116/78 SaO2: 100 Respiratory Rate: 17 Pulse Rate: 61 Temperature: 97.9 F Mental Status: Alert & Oriented Pain level:: 3 Nausea and/or vomitting:: None Intake, IV Amount: 0 Hydration: Adequate
== END 2022-10-16 10:54 | disposition home or self-care (01) ==
LOC: ER 10-16 05:48 → SDC 10-18 07:32
PROVIDERS: Emergency Provider Emergency Medicine; PCP Nurse Practitioner Family; Visit Provider Obstetrics & Gynecology
PROC: (CPT 49320; principal; 2022-10-16 07:10)
DX: R10.32 Left lower quadrant pain (principal); N39.0 Urinary tract infection, site not specified; D62 Acute posthemorrhagic anemia; N85.4 Malposition of uterus; Z98.51 Tubal ligation status; N73.6 Female pelvic peritoneal adhesions (postinfective); N83.201 Unspecified ovarian cyst, right side
CPT/HCPCS: 49320; 36415; 74177; 76830; 80053; 81001; 81025; 83690; 85014; 85018; 85025; 86850; 87086; 87088; 87186; 93005; 93225; 96374; J0330; J2405; Q9967

== ENCOUNTER 2023-02-27 18:24 | Emergency (ER) | payer BC, SELFPAY ==
[2023-02-27 18:26] VITALS: BP 129/84; PULSE 77; RESP 18; TEMP 36.6; O2SAT 100; BMI 20.6
--- NOTE | 2023-02-27 18:55 | ED_ITS ---
Discharge Plan Disposition Patient Disposition: Home, Self-Care Prescriptions Prescriptions: No Action Orilissa 150 mg tablet 150 mg PO DAILY Qty: 30 6RF iron 18 mg Tablet 18 mg PO DAILY calcium citrate 1,000 mg Tablet 1,200 mg PO DAILY cholecalciferol (vitamin D3) [Vitamin D3] 125 mcg (5,000 unit) Tablet 125 mcg PO DAILY mecobalamin (vitamin B12) [B12 Active] 1,000 mcg Tablet,Chewable 1,000 mcg PO DAILY cefdinir 300 mg capsule 300 mg PO BID 5 Days Qty: 10 0RF ibuprofen 800 mg tablet 800 mg PO Q8H PRN (Reason: pain) Qty: 20 0RF Referrals Follow up/Referrals: Fabián Dorantes APRN [Primary Care Provider] - See instructions Activity Restrictions/Add. Instructions Additional Instructions/Restrictions: Hemoglobin was normal today the remainder of your workup was also unremarkable please follow-up with your primary care doctor as needed. Clinical Impressions Clinical Impression: Abnormal uterine bleeding (AUB), Light headedness, Syncope Discharge ED Provider: Eri Barriga General Adult HPI General Chief complaint: Weakness Stated complaint: sent by Elidia Pereyra, dizzy SOA Time Seen by Provider: 02/27/23 18:39 Mode of Arrival: Ambulatory Source of Information: Patient Limitations: No Limitations Description of Symptoms (Recalled from ER Triage Doc. by RN): Patient states she had blood work last sunday02/23/22 and showed low iron levels. Patient was referred to for an iron infusion since then patient has been fatigued, dizziness, SOA and has started her menstrual cycle and is having heavy bleeding from that. instructed patient to come to [facility] due to symptoms. History of Present Illness HPI narrative: Is a 27-year-old female who was recently diagnosed with endometriosis and has had very heavy periods presents today with concerns for possible anemia. She had labs that were drawn just a few days ago at an outpatient lab and was referred to an oncologist by her primary care doctor who subsequently told her to come to the emergency department as there was a concern for possible need for transfusion. The patient is unaware of the exact lab but we do not have records of this but she did state that she was told she may need transfusion of blood. She is currently on her period but today it is significantly improved but she states that at its heaviest she was bleeding through 15 pads in a 24-hour period. She also states she has been very fatigued a little bit lightheaded and did pass out once within the last week. Denies any other symptoms at the moment. Related Data Home Medications Medication Instructions Recorded Confirmed calcium citrate 1,000 mg tablet 1,200 mg PO DAILY vitamin 04/25/22 10/20/22 cholecalciferol (vitamin D3) 125 125 mcg PO DAILY vitamin 04/25/22 10/20/22 mcg (5,000 unit) tablet (Vitamin D3) iron 18 mg tablet 18 mg PO DAILY vitamin 04/25/22 10/20/22 mecobalamin (vitamin B12) 1,000 1,000 mcg PO DAILY vitamin 04/25/22 10/20/22 mcg chewable tablet (B12 Active) Previous Rx's Medication Instructions Recorded cefdinir 300 mg capsule 300 mg PO BID 5 days #10 caps 10/16/22 ibuprofen 800 mg tablet 800 mg PO Q8H PRN pain #20 tabs 10/16/22 elagolix 150 mg tablet (Orilissa) 150 mg PO DAILY #30 tabs 11/21/22 Allergies Allergy/AdvReac Type Severity Reaction Status Date / Time buspirone [From BuSpar] Allergy Hallucinati Verified 10/20/22 11:13 ng hydromorphone [From Dilaudid] Allergy Hallucinati Verified 10/20/22 11:13 ng promethazine [From Phenergan] Allergy Vomiting Verified 10/20/22 11:13 PFSH PFSH Disclaimer: The information contained in this section may have been updated after the celestino ent was seen, as this information can be updated by other users. Medical History Endometriosis Pelvic pain Surgical History H/O bilateral salpingectomy H/O section H/O gastric sleeve H/O oophorectomy Hx of appendectomy Hx of cholecystectomy Hx of tonsillectomy Family History Other Diabetes Hypertension Stroke Social History Smoking Status: Never smoker alcohol intake: former substance use type: denies use current occupational status: employed Travel in the last 8 weeks: None ROS Obtained: Yes All systems reviewed & no additional complaints except as documented Physical Exam General General appearance: alert Respiratory Respiratory exam: Present normal lung sounds bilaterally Cardiovascular Cardiovascular exam: Present regular rate; Absent tachycardia Abdominal Exam Abdominal exam: Present soft; Absent distention or tenderness Neurological Exam Neurological exam: Present alert and oriented X3 Medical Decision Making Damian Inquiry Pt receiving controlled substance: No Vital Signs: 02/27/23 18:26 02/27/23 19:00 02/27/23 19:40 Temperature 97.9 F Temperature Source Oral Pulse Rate 77 80 Pulse Rate [Right Brachial] 77 Respiratory Rate 18 Blood Pressure 111/73 128/83 Blood Pressure [Right Arm] 129/84 Blood Pressure Mean [Right Arm] 99 Blood Pressure Source [Right Arm] Automatic Cuff Blood Pressure Position [Right Arm] Sitting 02 Sat by Pulse Oximetry 100 100 100 Oxygen Delivery Method Room Air Lab Data Lab results reviewed: Yes I reviewed the patient's lab results. Lab Results 02/27/23 18:35: WBC 4.3 L, RBC 4.36, Hgb 13.3, Hct 39.3, MCV 90.2, MCH 30.5, MCHC 33.8, RDW 12.8, Plt Count 157, MPV 8.0, Neut % (Auto) 61.8, Lymph % (Auto) 30.8, [place] % (Auto) 6.0, Eos % (Auto) 0.6, Baso % (Auto) 0.7, Neut # (Auto) 2.7, Lymph # (Auto) 1.3, [place] # (Auto) 0.3, Eos # (Auto) 0.0, Baso # (Auto) 0.0, [place] um 140, Potassium 3.7, Chloride 106, Carbon Dioxide 28, Anion Gap 9.7, BUN 16, Creatinine 0.70, Estimated Creat Clear 127, Estimated GFR 102, Est GFR ( Amer) 123, Glucose 68 L, Calcium 8.9, Total Bilirubin 0.8, AST 36, ALT 36, Alkaline Phosphatase 55, Total Protein 7.2, Albumin 4.4, Globulin 2.8, Albumin/Globulin Ratio 1.6, TSH 2.68 02/27/23 19:10: Serum HCG, Qual Negative, Blood Type A Positive 02/27/23 18:35 02/27/23 18:35 Orders (Tests/Meds): ORDERS Category Date Time Status Type and Screen Stat BBK 02/27/23 19:10 Results CBC w/Auto Diff [Complete Blood Count Auto Diff] Stat Lab 02/27/23 18:35 Completed CMP [Comprehensive Metabolic Panel] Stat Lab 02/27/23 18:35 Completed HCG Qualitative, Serum Stat Lab 02/27/23 19:10 Completed TSH [Thyroid Stimulating Hormone] Stat Lab 02/27/23 18:35 Completed Medical Decision Narrative: Is a 27-year-old female presenting today with fatigue lightheadedness and concern with outpatient labs for being possibly anemic to the point of needing a transfusion. She does have a history of anemia looking back on her labs her hemoglobin was 10 and [place]. Will recheck her H&H and give her type and screen at the moment. Also will check basic electrolytes and EKG thyroid function and hCG to make sure is no alternative cause for her symptoms today. I have explained to her that if her H&H is above 7 and 21 that we do not do iron transfusions in the emergency department and that unless she is having a critic al oxygen supply concern with a hemoglobin less than 7 we will not transfuse her emergently. She understands this and I have also advised that she follow-up with her [employer] doctor to further discuss being on medications or other options for possible improvement in her symptoms such as uterine ablation different medications hysterectomy etc. Her symptoms are most likely secondary to blood loss from heavy periods and endometriosis. She is very stable on my assessment at the moment will reassess after her initial workup is complete. EKG performed which I personally interpreted shows a ventricular rate of 65 normal sinus rhythm no acute ischemic changes noted no significant conduction abnormalities nondiagnostic. Reassessment patient unchanged at 8:05 PM H&H is normal hemoglobin specifically is 13 this is not the cause of her symptoms. No alternative cause for her lightheadedness aside from a mild depression and glucose at 67. She has been advised to eat normal foods and follow-up with primary care doctor and to continue to discuss with her [employer] doctor her ongoing heavy periods. Critical Care Critical Care Time Critical Care Time: No
[2023-02-27 19:00] VITALS: BP 111/73; PULSE 77; O2SAT 100
--- NOTE | 2023-02-27 19:12 | PC.NURSE ---
Lab at bedside drawing labs, pt had a syncope episode, cold rags applied, pt aroused a/o x 4 at this time BP 129/79
[2023-02-27 19:15] LABS: Chloride 106 mmol/L (98-107); Potassium 3.7 mmoL/L (3.5-5.1); Sodium 140 mmol/L (136-145)
[2023-02-27 19:16] LABS: Basophils % 0.7 % (0.1-2.0); Eosinophils % 0.6 % (0.1-12.0); Hematocrit 39.3 % (37.0-47.0); Hemoglobin 13.3 g/dL (12.2-16.2); Lymphocytes # 1.3 K/mm3 (0.7-4.5); Lymphocytes % 30.8 % (10-50); Mean Corpuscular HGB Conc 33.8 g/dL (31.8-35.4); Mean Corpuscular Hemoglobin 30.5 pg (27.0-31.2); Mean Corpuscular Volume 90.2 fl (81-99); Monocytes # 0.3 K/mm3 (0.1-1.0); Neutrophils # 2.7 K/mm3 (1.8-7.8); Neutrophils % 61.8 % (37.0-80.0); Platelet Count 157 K/mm3 (142-424); Red Blood Count 4.36 M/mm3 (4.20-5.40); Red Cell Distribution Width 12.8 % (11.5-17.5); White Blood Count 4.3 K/mm3 (4.8-10.8)
[2023-02-27 19:18] LABS: Alanine Aminotransferase 36 U/L (12-78); Albumin Level 4.4 g/dl (3.5-5.0); Albumin/Globulin Ratio 1.6 (1.1-1.8); Alkaline Phosphatase 55 U/L (38-126); Anion Gap 9.7 mEq/L (5-15); Aspartate Amino Transferase 36 U/L (14-36); Bilirubin,Total 0.8 mg/dl (0.2-1.3); Blood Urea Nitrogen 16 mg/dl (7-17); Carbon Dioxide 28 mmol/L (22.0-30.0); Creatinine Clearance Estimated 127 mL/min (50-200); Estimated Glomerular Filt Rate 102 ml/min (>60); GFR (African American) 123 ML/MIN (>60); Globulin 2.8 g/dL (1.3-3.2); Total Protein,Serum 7.2 g/dl (6.3-8.2)
[2023-02-27 19:19] LABS: Calcium 8.9 mg/dl (8.4-10.2); Glucose 68 mg/dl (74-100)
--- NOTE | 2023-02-27 19:32 | ECG_ITS ---
APPROVED REPORT Exam: Resting ECG HR:65 bpm ECG Measurements Heart Rate 65 AXES MN 168 P 76 QRSd 98 QRS 91 QT 392 T 76 QTc 403 Conclusion SINUS RHYTHM BORDERLINE RIGHT AXIS DEVIATION [QRS AXIS > 90] BORDERLINE ECG UNCONFIRMED REPORT Electronically signed by : Joo Almendarez MD 02/28/2023 13:08:53
--- NOTE | 2023-02-27 19:39 | PC.NURSE ---
Pt provided snack, BG 68
[2023-02-27 19:40] VITALS: BP 128/83; PULSE 80; O2SAT 100
[2023-02-27 19:49] LABS: Thyroid Stimulating Hormone 2.68 uIU/mL (0.465-4.68)
[2023-02-27 19:51] LABS: HCG Qualitative, Serum Negative (Negative)
[2023-02-27 20:00] VITALS: BP 117/74; PULSE 83; O2SAT 100
[2023-02-27 20:16] VITALS: BP 117/74; PULSE 70; RESP 20; TEMP 36.7; O2SAT 100
== END 2023-02-27 20:18 | disposition home or self-care (01) ==
PROVIDERS: Emergency Provider Student in an Organized Health Care Education/Training Program; PCP Nurse Practitioner Family
DX: N93.9 Abnormal uterine and vaginal bleeding, unspecified (principal); R55 Syncope and collapse; R42 Dizziness and giddiness; R53.83 Other fatigue; N80.C0 Endometriosis of the abdomen, unspecified
CPT/HCPCS: 36415; 80053; 84443; 84703; 85025; 86850; 93005; 99285

== ENCOUNTER 2023-03-01 15:25 | Emergency (ER) | payer BC, SELFPAY ==
[2023-03-01] VITALS (8 sets, daily range): BP systolic 113–133; BP diastolic 69–89; PULSE 56–72; RESP 14–16; TEMP 36.4–36.6; O2SAT 98–100; BMI 20.5
--- NOTE | 2023-03-01 15:23 | ECG_ITS ---
APPROVED REPORT Exam: Resting ECG HR:64 bpm ECG Measurements Heart Rate 64 AXES [place] 162 P 67 QRSd 88 QRS 79 QT 388 T 57 QTc 397 Conclusion SINUS RHYTHM WITH SINUS ARRHYTHMIA NORMAL ECG UNCONFIRMED REPORT Electronically signed by : Joo Almendarez MD 03/01/2023 20:06:33
--- NOTE | 2023-03-01 15:49 | [facility].EDCP ---
Discharge Plan Disposition Patient Disposition: Home, Self-Care Prescriptions Prescriptions: No Action Orilissa 150 mg tablet 150 mg PO DAILY Qty: 30 6RF iron 18 mg Tablet 18 mg PO DAILY calcium citrate 1,000 mg Tablet 1,200 mg PO DAILY cholecalciferol (vitamin D3) [Vitamin D3] 125 mcg (5,000 unit) Tablet 125 mcg PO DAILY mecobalamin (vitamin B12) [B12 Active] 1,000 mcg Tablet,Chewable 1,000 mcg PO DAILY cefdinir 300 mg capsule 300 mg PO BID 5 Days Qty: 10 0RF ibuprofen 800 mg tablet 800 mg PO Q8H PRN (Reason: pain) Qty: 20 0RF Activity Restrictions/Add. Instructions Additional Instructions/Restrictions: Follow-up with your family doctor regarding this visit to the emergency department for generalized weakness. All of your levels today were largely unconcerning. Iron was a little bit low, but not critically so. I still think you would benefit from iron infusions. Vitamin B12 was also normal today. Your labs are largely unremarkable. Your white blood cell count was a little bit low, which is likely lab draw margin of error, follow-up with your family doctor regarding this and repeat labs. Call your family doctor to establish care for this visit to the emergency department and schedule follow-up within 48 hours to ensure improvement. If you have any worsening of your condition or any other concerning signs or symptoms, return to the emergency department or your primary care doctor for further evaluation. Clinical Impressions Clinical Impression: Generalized weakness Discharge ED Provider: [place] General Chief Complaint: Chest Pain Stated Complaint: chest pain Time Seen by Provider: 03/01/23 15:29 Mode of Arrival: Ambulatory Source of Information: Patient Limitations: No Limitations Description of Symptoms (Recalled from ER Triage Doc. by RN): Patient states she has had an on and off headache, fainting and shaking for 2 weeks now. States she has been seen by her PCP who did blood work and told her that her Vitamin D and iron levels were low. Complaint of chest pain today that comes and goes. History of Present Illness HPI narrative: 22-year-old female history of gastric sleeve 1 year prior to this visit, numerous vitamin disease presenting with lightheadedness and generalized weakness. This has been going on for about 2 weeks now. Patient states she feels generally weak, lightheaded with minimal exertion. She saw her PCP who did blood work and told her that she has critically low iron levels, and [address] Lopez the assistant professor of music. Patient continues to have symptoms, so came to the emergency department for further evaluation. Related Data Home Medications Medication Instructions Recorded Confirmed calcium citrate 1,000 mg tablet 1,200 mg PO DAILY vitamin 04/25/22 10/20/22 cholecalciferol (vitamin D3) 125 125 mcg PO DAILY vitamin 04/25/22 10/20/22 mcg (5,000 unit) tablet (Vitamin D3) iron 18 mg tablet 18 mg PO DAILY vitamin 04/25/22 10/20/22 mecobalamin (vitamin B12) 1,000 1,000 mcg PO DAILY vitamin 04/25/22 10/20/22 mcg chewable tablet (B12 Active) Previous Rx's Medication Instructions Recorded cefdinir 300 mg capsule 300 mg PO BID 5 days #10 caps 10/16/22 ibuprofen 800 mg tablet 800 mg PO Q8H PRN pain #20 tabs 10/16/22 elagolix 150 mg tablet (Orilissa) 150 mg PO DAILY #30 tabs 11/21/22 Allergies Allergy/AdvReac Type Severity Reaction Status Date / Time buspirone [From BuSpar] Allergy Hallucinati Verified 10/20/22 11:13 ng hydromorphone [From Dilaudid] Allergy Hallucinati Verified 10/20/22 11:13 ng promethazine [From Phenergan] Allergy Vomiting Verified 10/20/22 11:13 PFSH PFSH Disclaimer: The information contained in this section may have been updated after the patient was seen, as this information can be updated by other users. Medical History Endometriosis Pelvic pain Surgical History H/O bilateral salpingectomy H/O section H/O gastric sleeve H/O oophorectomy Hx of appendectomy Hx of cholecystectomy Hx of tonsillectomy Family History Other Diabetes Hypertension Stroke Social History Smoking Status: Never smoker alcohol intake: former substance use type: denies use current occupational status: employed Travel in the last 8 weeks: None ROS Obtained: Yes All systems reviewed & no additional complaints except as documented Physical Exam General General appearance: alert Neck Neck exam: Present trachea midline Chest Chest inspection: Present normal inspection and symmetric chest wall rise Respiratory Respiratory exam: Present normal lung sounds bilaterally; Absent respiratory distress, wheezes, stridor, accessory muscle use or prolonged expiratory phase Cardiovascular Cardiovascular exam: Present regular rate and normal rhythm Extremities Exam Extremities exam: Absent edema Neurological Exam Neurological exam: Present alert, oriented X3 and CN II-XII intact Skin Skin exam: Present warm, dry and pallor; Absent cyanosis or diaphoresis HEART Score HEART Score HEART Score assessment performed?: Yes HEART Score: 0 Procedures Limited Ultrasound Indication:: Limited cardiac ultrasound Indication: Weakness, presyncope Identified cardiac views: -Cardiac parasternal long axis -Cardiac parasternal short axis Findings: -Cardiac activity present -Gross wall motion normal -Pericardial effusion absent -Right heart strain absent Impression: -Normal cardiac ultrasound Images were saved to permanent archive The study was technically adequate CPT: 50222 This study was performed by me, and I personally interpreted all images/videos. Based on my clinical judgement, these images were adequate and did not necessitate further imaging. Critical Care Critical Care Time Critical Care Time: No Medical Decision Making Medical Records Medical records reviewed: Yes I reviewed the patient's medical records. Damian Inquiry Pt receiving controlled substance: No Damian was queried for this patient: No Vital Signs Vital Signs: 03/01/23 15:25 03/01/23 16:00 03/01/23 16:31 Temperature 97.5 F L Temperature Source Oral Pulse Rate 67 72 Pulse Rate [Radial] 70 Respiratory Rate 16 15 14 Blood Pressure 125/82 131/77 Blood Pressure [Right Arm] 133/89 Blood Pressure Mean [Right Arm] 103 Blood Pressure Source [Right Arm] Automatic Cuff Blood Pressure Position [Right Arm] Sitting 02 Sat by Pulse Oximetry 100 98 100 Oxygen Delivery Method Room Air 03/01/23 17:00 03/01/23 17:30 03/01/23 18:00 Temperature Temperature Source Pulse Rate 63 64 66 Pulse Rate [Radial] Respiratory Rate Blood Pressure 122/81 116/72 113/69 Blood Pressure [Right Arm] Blood Pressure Mean [Right Arm] Blood Pressure Source [Right Arm] Blood Pressure Position [Right Arm] 02 Sat by Pulse Oximetry 100 100 99 Oxygen Delivery Method 03/01/23 18:30 Temperature Temperature Source Pulse Rate 71 Pulse Rate [Radial] Respiratory Rate Blood Pressure 123/81 Blood Pressure [Right Arm] Blood Pressure Mean [Right Arm] Blood Pressure Source [Right Arm] Blood Pressure Position [Right Arm] 02 Sat by Pulse Oximetry 100 Oxygen Delivery Method Lab Data Labs: Lab Results 03/01/23 15:35: Sodium 139, Potassium 4.8 D, Chloride 104, Carbon Dioxide 29, Anion Gap 10.8, BUN 20 H, Creatinine 0.60, Estimated Creat Clear 147, Estimated GFR 122, Est GFR ( Amer) 147, Glucose 96, Calcium 9.1, Phosphorus 4.2, Magnesium 2.0, Total Bilirubin 0.7, AST 38 H, ALT 35, Alkaline Phosphatase 48, Troponin I < 0.01, Total Protein 7.3, Albumin 4.5, Globulin 2.8, Albumin/Globulin Ratio 1.6, Vitamin B12 398, TSH 3.12, Thyroxine (T4) 8.9, HCG, Quant < 2 03/01/23 16:00: WBC 4.1 L, RBC 4.02 L, Hgb 12.3, Hct 35.8 L, MCV 89.0, MCH 30.7, MCHC 34.4, RDW 12.7, Plt Count 172, MPV 8.3, Neut % (Auto) 66.8, Lymph % (Auto) 25.7, [place] % (Auto) 6.0, Eos % (Auto) 0.7, Baso % (Auto) 0.7, Neut # (Auto) 2.7, Lymph # (Auto) 1.1, [place] # (Auto) 0.3, Eos # (Auto) 0.0, Baso # (Auto) 0.0, Iron 33 L, TIBC 295, Iron Saturation 11.93171 L 03/01/23 16:43: Urine Color Yellow, Urine Appearance Clear, Urine pH 7.0, Ur Specific [place] 1.025, Urine Protein Negative, Urine Glucose (UA) Negative, Urine Ketones Negative, Urine Blood 1+, Urine Nitrate Negative, Urine Bilirubin Negative, Urine Urobilinogen 2.0, Ur Leukocyte Esterase Trace, Urine RBC None, Urine WBC Occasional, Ur Squamous Epith Cells Occasional, Urine Bacteria None 03/01/23 18:33: Troponin I < 0.01 03/01/23 16:00 03/01/23 15:35 Response Orders (Tests/Meds): ED MEDICATIONS Discontinued Medications Generic Name Dose Route Start Last Admin Trade Name Prince PRN Reason Stop Dose Admin Lactated Ringer's 1,000 mls @ 999 mls/hr 03/01/23 15:54 03/01/23 16:15 Lactated Ringer's 1000 Ml Bag IV 03/01/23 16:54 999 mls/hr .Q1H1M ONE Administration ORDERS Category Date Time Status CXR --portable [XR chest portable] Stat Exams 03/01/23 15:52 Completed POCUS Point of Care (ER Only) Stat Exams 03/01/23 15:52 Taken CBC w/Auto Diff [Complete Blood Count Auto Diff] Stat Lab 03/01/23 16:00 Completed CMP [Comprehensive Metabolic Panel] Stat Lab 03/01/23 15:35 Completed HCG,Quantitative Stat Lab 03/01/23 15:35 Completed Iron and TIBC Stat Lab 03/01/23 16:00 Completed Magnesium Stat Lab 03/01/23 15:35 Completed Phosphorous Stat Lab 03/01/23 15:35 Completed T4 (Thyroxine) Stat Lab 03/01/23 15:35 Completed TSH [Thyroid Stimulating Hormone] Stat Lab 03/01/23 15:35 Completed Trop I [Troponin I] Stat Lab 03/01/23 15:35 Completed Troponin I Q3H Lab 03/01/23 18:33 Completed Troponin I Q3H Lab 03/01/23 22:00 Ordered UA [Urinalysis and Microscopic] Stat Lab 03/01/23 16:43 Completed Vitamin B12 Stat Lab 03/01/23 15:35 Completed ECG initial [place] Routine Y 03/01/23 15:23 Completed MDM Narrative Medical Decision Narrative: 22-year-old female history of gastric sleeve 1 year prior to this visit, numerous vitamin disease presenting with lightheadedness and generalized weakness. This has been going on for about 2 weeks now. Patient states she feels generally weak, lightheaded with minimal exertion. She saw her PCP who did blood work and told her that she has critically low iron levels, and [address] Lopez the assistant professor of music. Patient continues to have symptoms, so came to the emergency department for further evaluation. History was obtained via conversation with patient. On arrival, patient hemodynamically stable, alert, oriented x4, appropriate, GCS 15, moving all extremities spontaneously, pupils equal and reactive to light. Full physical exam performed and significant for pale, thin appearing patient no acute distress. Nontachycardic, normotensive, saturating appropriately on room air. Bilateral breath sounds normal, pulses equal and symmetric, no extracardiac sounds and overall normal physical exam. Differential includes metabolic abnormality, vitamin versus mineral deficiency, symptomatic anemia, cardiac dysfunction, eating disorder, endocrinologic, among others. Patient was given 1 L LR for symptomatic management and correction of underlying abnormalities. Workup independently interpreted and significant for mild leukopenia, this was relayed. Hemoglobin 12.3 and normal. Iron studies largely nonactionable. Iron was low at 33, TIBC normal, iron saturation mildly low at 11.2. Delta troponin negative, hCG negative. Urinalysis also negative. See radiology read for full review of final results. Independent interpretation of EKG shows sinus rhythm 85 beats a minute without ST or T wave changes concerning for acute ischemia. Patient does have voltage, but no findings concerning for HOCM, no delta or epsilon waves. No [place] pattern. DE, QRS, QT intervals within normal limits Patient was placed in observation beginning at 1530 in order to serial troponins and MRI and determine need for admission versus home-going. The patient was provided serial troponins, monitoring and cardiac echo while awaiting results. Independent interpretation of results demonstrated negative delta troponin. [id number] cardiac ultrasound within normal limits. On reevaluation, patient resting comfortably in bed. At this time, I feel patient is appropriate for discharge. Total observation time 3 hours. Because patient at baseline without signs or symptoms of clinical decompensation, deemed appropriate for discharge. Results were relayed to patient who voiced understanding and were agreeable to outpatient management and follow up. At the time of discharge the patient was hemodynamically stable, tolerating PO, and mobilizing appropriately.
--- NOTE | 2023-03-01 15:52 | XR_ITS ---
FINAL REPORT CLINICAL HISTORY: soa lightheaded COMPARISON: None FINDINGS: A single portable view of the chest was obtained. The heart size and pulmonary vascularity are within normal limits. The mediastinum is within normal limits. No acute pulmonary abnormality is identified. The bony thorax is intact. IMPRESSION: No active cardiopulmonary disease. Reviewed, Interpreted and Dictated by Chris Brian III, MD Transcribed by Nely Way Authenticated and [facility]
[2023-03-01 16:01] LABS: Chloride 104 mmol/L (98-107); Potassium 4.8 mmoL/L (3.5-5.1); Sodium 139 mmol/L (136-145)
[2023-03-01 16:03] LABS: Alanine Aminotransferase 35 U/L (12-78); Aspartate Amino Transferase 38 U/L (14-36); Blood Urea Nitrogen 20 mg/dl (7-17); Creatinine Clearance Estimated 147 mL/min (50-200); Estimated Glomerular Filt Rate 122 ml/min (>60); GFR (African American) 147 ML/MIN (>60); Phosphorous 4.2 mg/dl (2.5-4.5)
[2023-03-01 16:04] LABS: Albumin Level 4.5 g/dl (3.5-5.0); Albumin/Globulin Ratio 1.6 (1.1-1.8); Alkaline Phosphatase 48 U/L (38-126); Anion Gap 10.8 mEq/L (5-15); Bilirubin,Total 0.7 mg/dl (0.2-1.3); Calcium 9.1 mg/dl (8.4-10.2); Carbon Dioxide 29 mmol/L (22.0-30.0); Globulin 2.8 g/dL (1.3-3.2); Glucose 96 mg/dl (74-100); Total Protein,Serum 7.3 g/dl (6.3-8.2)
[2023-03-01 16:11] LABS: Basophils % 0.7 % (0.1-2.0); Eosinophils % 0.7 % (0.1-12.0); Hematocrit 35.8 % (37.0-47.0); Hemoglobin 12.3 g/dL (12.2-16.2); Lymphocytes # 1.1 K/mm3 (0.7-4.5); Lymphocytes % 25.7 % (10-50); Mean Corpuscular HGB Conc 34.4 g/dL (31.8-35.4); Mean Corpuscular Hemoglobin 30.7 pg (27.0-31.2); Mean Platelet Volume 8.3 fl (7.4-10.4); Monocytes # 0.3 K/mm3 (0.1-1.0); Neutrophils # 2.7 K/mm3 (1.8-7.8); Neutrophils % 66.8 % (37.0-80.0); Platelet Count 172 K/mm3 (142-424); Red Blood Count 4.02 M/mm3 (4.20-5.40); Red Cell Distribution Width 12.7 % (11.5-17.5); White Blood Count 4.1 K/mm3 (4.8-10.8)
[2023-03-01] MEDS: LACTATED RINGERS 1000ML 1,000 ML 999 ML IV (16:15)
--- NOTE | 2023-03-01 16:20 | PC.NURSE ---
XR AT BEDSIDE
[2023-03-01 16:21] LABS: T4 (Thyroxine) 8.9 ug/dl (5.53-11.0)
[2023-03-01 16:26] LABS: HCG,Quantitative < 2 mIU/ml (0-5.42); Troponin I < 0.01 ng/ml (0.00-0.034)
[2023-03-01 16:35] LABS: Thyroid Stimulating Hormone 3.12 uIU/mL (0.465-4.68)
[2023-03-01 16:48] LABS: Microscopic, Urine URINE MICROSCOPIC (MICROSCOPIC)
[2023-03-01 16:53] LABS: Appearance,Urine CLEAR (Clear); Bilirubin,Urine Negative (Negative); Blood, Urine 1+ (Negative); Color,Urine YELLOW (Yellow); Glucose,Urine (UA) Negative (Negative); Ketones,Urine Negative (Negative); Leukocyte Esterase,Urine TRACE (Negative); Nitrate,Urine Negative (Negative); Protein,Urine Negative (Negative); Specific Gravity, Urine 1.025 (1.005-1.030)
[2023-03-01 17:00] LABS: Squamous Epithelial Cell,Urine Occasional #/hpf (0-5); WBC,Urine Occasional #/hpf (0-3)
[2023-03-01 17:26] LABS: Iron 33 ug/dL (37-170)
[2023-03-01 17:36] LABS: Total Iron Binding Capacity 295 ug/dL (265-497)
[2023-03-01 17:40] LABS: Vitamin B12 398 pg/mL (239-931)
--- NOTE | 2023-03-01 18:22 | PC.NURSE ---
CHECKED ON PT SHE IS SLEEP SIGNIFICANT OTHER AT BS
[2023-03-01 19:01] LABS: Troponin I < 0.01 ng/ml (0.00-0.034)
== END 2023-03-01 19:21 | disposition home or self-care (01) ==
PROVIDERS: Emergency Provider Emergency Medicine
DX: R07.9 Chest pain, unspecified (principal); R51.9 Headache, unspecified; R53.1 Weakness; R42 Dizziness and giddiness; N80.9 Endometriosis, unspecified; D72.819 Decreased white blood cell count, unspecified
CPT/HCPCS: 71045; 80053; 81001; 82607; 83540; 83550; 83735; 84100; 84436; 84443; 84484; 84702; 85025; 93005; 96360; 99285

== ENCOUNTER 2023-03-04 00:13 | Observation (INO) | payer BC, SELFPAY ==
--- NOTE | 2023-03-04 00:14 | ECG_ITS ---
APPROVED REPORT Exam: Resting ECG HR:87 bpm ECG Measurements Heart Rate 87 AXES GA 161 P 71 QRSd 93 QRS 84 QT 342 T 48 QTc 387 Conclusion SINUS RHYTHM NORMAL ECG UNCONFIRMED REPORT Electronically signed by : Joo Almendarez MD 03/04/2023 15:10:59
[2023-03-04 00:31] VITALS: BP 123/74; PULSE 70; RESP 18; O2SAT 100; BMI 20.5
--- NOTE | 2023-03-04 01:00 | PC.NURSE ---
FSBS was 94 Dexacom reading 81
[2023-03-04 01:01] LABS: Basophils # 0.1 K/mm3 (0-0.2); Basophils % 0.7 % (0.1-2.0); Eosinophils # 0.1 K/mm3 (0.0-0.4); Hematocrit 37.9 % (37.0-47.0); Lymphocytes # 2.2 K/mm3 (0.7-4.5); Lymphocytes % 31.4 % (10-50); Mean Corpuscular HGB Conc 34.3 g/dL (31.8-35.4); Mean Corpuscular Volume 90.4 fl (81-99); Mean Platelet Volume 8.1 fl (7.4-10.4); Monocytes # 0.2 K/mm3 (0.1-1.0); Monocytes % 3.1 % (1.7-9.3); Neutrophils # 4.4 K/mm3 (1.8-7.8); Neutrophils % 63.9 % (37.0-80.0); Platelet Count 183 K/mm3 (142-424); Red Cell Distribution Width 12.6 % (11.5-17.5)
[2023-03-04 01:02] VITALS: BP 123/74; PULSE 75; RESP 20; TEMP 36.4; O2SAT 100; BMI 20.5
[2023-03-04 01:09] LABS: Alanine Aminotransferase 54 U/L (12-78); Albumin Level 4.3 g/dl (3.5-5.0); Albumin/Globulin Ratio 1.7 (1.1-1.8); Alkaline Phosphatase 56 U/L (38-126); Anion Gap 11.4 mEq/L (5-15); Aspartate Amino Transferase 43 U/L (14-36); Bilirubin,Total 0.4 mg/dl (0.2-1.3); Blood Urea Nitrogen 15 mg/dl (7-17); Calcium 8.5 mg/dl (8.4-10.2); Carbon Dioxide 28 mmol/L (22.0-30.0); Chloride 105 mmol/L (98-107); Creatinine Clearance Estimated 126 mL/min (50-200); Estimated Glomerular Filt Rate 102 ml/min (>60); GFR (African American) 123 ML/MIN (>60); Globulin 2.6 g/dL (1.3-3.2); Glucose 88 mg/dl (74-100); Potassium 3.4 mmoL/L (3.5-5.1); Sodium 141 mmol/L (136-145); Total Protein,Serum 6.9 g/dl (6.3-8.2)
[2023-03-04 01:10] VITALS: BP 143/95; PULSE 67; RESP 13; O2SAT 100
--- NOTE | 2023-03-04 01:19 | PC.NURSE ---
Visitor at bedside came out and said patient was feeling like she was going to pass out and that her dexcom was reading in the 60s at this time. FSBG 77 at this time. Vital signs stable. Notified provider.
[2023-03-04 01:34] VITALS: BP 122/86; PULSE 68; RESP 12; O2SAT 100
[2023-03-04 01:37] LABS: Microscopic, Urine URINE MICROSCOPIC (MICROSCOPIC)
[2023-03-04 01:40] LABS: Appearance,Urine CLEAR (Clear); Bilirubin,Urine Negative (Negative); Blood, Urine Negative (Negative); Color,Urine YELLOW (Yellow); Glucose,Urine (UA) Negative (Negative); Ketones,Urine Negative (Negative); Leukocyte Esterase,Urine Negative (Negative); Nitrate,Urine Negative (Negative); Protein,Urine Negative (Negative); Specific Gravity, Urine 1.025 (1.005-1.030)
[2023-03-04] MEDS: DEXTROSE 5 % IN WATER 250 ML IV (01:40)
[2023-03-04 01:42] LABS: Urine Pregnancy, HCG Qual. Negative (Negative)
--- NOTE | 2023-03-04 01:47 | HMH.EDGENADL ---
Discharge Plan Disposition Patient Disposition: Admitted Condition: Good Clinical Impressions Clinical Impression: Hypoglycemia, Pre-syncope Discharge ED Provider: Theresa Stone General Adult HPI General Chief complaint: Recheck/Abnormal Lab/Rx Stated complaint: AMS Time Seen by Provider: 03/04/23 00:14 Mode of Arrival: Ambulatory Source of Information: Patient Limitations: No Limitations Description of Symptoms (Recalled from ER Triage Doc. by RN): Patient states her dexacom keeps reading low blood sugars. History of Present Illness HPI narrative: This patient is a 27-year-old female with history of prior gastric bypass surgery, chronic vitamin deficiency, and vasovagal syncope presenting to the emergency department for evaluation with concern for weakness, lightheadedness, and low blood sugar readings on her Dexcom. Patient reports that she was given a Dexcom 2 days ago because she was having episodes of weakness and syncope that her PCP thought might be related to her blood sugar. She notes that all afternoon/evening, she has been struggling to keep her blood sugar up despite oral intake. It has been reading in the 50s to 60s on her Dexcom, and she feels very weak and tired. She was with her boyfriend who corroborates history and shows me Dexcom readings. She denies any history of any use of diabetes medications, including insulin. She also does complain of mild headache at this time, but no vision changes, neurologic symptoms, or other concerns. On medical review, she has been seen in the emergency department twice over the last week, once for low iron and again for generalized weakness. Related Data Home Medications Medication Instructions Recorded Confirmed calcium citrate 1,000 mg tablet 1,200 mg PO DAILY vitamin 04/25/22 03/04/23 cholecalciferol (vitamin D3) 125 125 mcg PO DAILY vitamin 04/25/22 03/04/23 mcg (5,000 unit) tablet (Vitamin D3) iron 18 mg tablet 18 mg PO DAILY vitamin 04/25/22 03/04/23 mecobalamin (vitamin B12) 1,000 1,000 mcg PO DAILY vitamin 04/25/22 03/04/23 mcg chewable tablet (B12 Active) Previous Rx's Medication Instructions Recorded cefdinir 300 mg capsule 300 mg PO BID 5 days #10 caps 10/16/22 ibuprofen 800 mg tablet 800 mg PO Q8H PRN pain #20 tabs 10/16/22 elagolix 150 mg tablet (Orilissa) 150 mg PO DAILY #30 tabs 11/21/22 Allergies Allergy/AdvReac Type Severity Reaction Status Date / Time buspirone [From BuSpar] Allergy Hallucinati Verified 10/20/22 11:13 ng hydromorphone [From Dilaudid] Allergy Hallucinati Verified 10/20/22 11:13 ng promethazine [From Phenergan] Allergy Vomiting Verified 10/20/22 11:13 PFSH [facility] Disclaimer: The information contained in this section may have been updated after the patient was seen, as this information can be updated by other users. Medical History Endometriosis Pelvic pain Surgical History H/O bilateral salpingectomy H/O section H/O gastric sleeve H/O oophorectomy Hx of appendectomy Hx of cholecystectomy Hx of tonsillectomy Family History Other Diabetes Hypertension Stroke Social History Smoking Status: Never smoker alcohol intake: former substance use type: denies use current occupational status: employed Travel in the last 8 weeks: None ROS Obtained: Yes All systems reviewed & no additional complaints except as documented Physical Exam General General appearance: lethargic Comment: Tired-appearing - was carried into the ED by her boyfriend. Arouses to verbal stimulation on exam Head Head exam: atraumatic and normocephalic Eye Eye exam: Present normal appearance, PERRL and EOMI ENT ENT exam: Present normal exam, normal oropharynx, mucous membranes moist and normal external ear exam Neck Neck exam: Present normal inspection, full ROM and trachea midline; Absent tenderness Chest Chest inspection: Present normal inspection and symmetric chest wall rise; Absent tenderness Respiratory Respiratory exam: Present normal lung sounds bilaterally; Absent respiratory distress, wheezes, stridor or accessory muscle use Cardiovascular Cardiovascular exam: Present regular rate and normal rhythm Abdominal Exam Abdominal exam: Present soft; Absent distention, tenderness or guarding Extremities Exam Extremities exam: Present normal inspection, full ROM and normal capillary refill; Absent tenderness or edema Back Exam Back exam: Present normal inspection and full ROM; Absent tenderness Neurological Exam Neurological exam: Present alert, oriented X3, CN II-XII intact and normal gait; Absent motor sensory deficit Psychiatric Psychiatric exam: Present normal affect and normal mood Skin Skin exam: Present warm and dry Medical Decision Making Medical Records Medical records reviewed: Yes I reviewed the patient's medical records. Damian Inquiry Pt receiving controlled substance: No Vital Signs: 03/04/23 01:02 03/04/23 00:31 03/04/23 01:10 Temperature 97.6 F Temperature Source Oral Pulse Rate 70 67 Pulse Rate [Right Radial] 75 Respiratory Rate 20 18 13 Blood Pressure 123/74 143/95 H Blood Pressure [Right Arm] 123/74 Blood Pressure Mean [Right Arm] 90 02 Sat by Pulse Oximetry 100 100 100 Oxygen Delivery Method Room Air 03/04/23 01:34 Temperature Temperature Source Pulse Rate 68 Pulse Rate [Right Radial] Respiratory Rate 12 Blood Pressure 122/86 Blood Pressure [Right Arm] Blood Pressure Mean [Right Arm] 02 Sat by Pulse Oximetry 100 Oxygen Delivery Method Lab Data Lab results reviewed: Yes I reviewed the patient's lab results. Lab Results 03/04/23 00:52: WBC 7.0 D, RBC 4.20, Hgb 13.0, Hct 37.9, MCV 90.4, MCH 31.0, MCHC 34.3, RDW 12.6, Plt Count 183, MPV 8.1, Neut % (Auto) 63.9, Lymph % (Auto) 31.4, [place] % (Auto) 3.1, Eos % (Auto) 1.0, Baso % (Auto) 0.7, Neut # (Auto) 4.4, Lymph # (Auto) 2.2, [place] # (Auto) 0.2, Eos # (Auto) 0.1, Baso # (Auto) 0.1, Sodium 141, Potassium 3.4 L D, Chloride 105, Carbon Dioxide 28, Anion Gap 11.4, BUN 15, Creatinine 0.70, Estimated Creat Clear 126, Estimated GFR 102, Est GFR ( Amer) 123, Glucose 88, Hemoglobin A1c 4.9, Calcium 8.5, Total Bilirubin 0.4, AST 43 H, ALT 54 D, Alkaline Phosphatase 56, Total Protein 6.9, Albumin 4.3, Globulin 2.6, Albumin/Globulin Ratio 1.7 03/04/23 01:30: Urine Color Yellow, Urine Appearance Clear, Urine pH 6.0, Ur Specific [place] 1.025, Urine Protein Negative, Urine Glucose (UA) Negative, Urine Ketones Negative, Urine Blood Negative, Urine Nitrate Negative, Urine Bilirubin Negative, Urine Urobilinogen 1.0, Ur Leukocyte Esterase Negative, Urine RBC None, Urine WBC Occasional, Ur Squamous Epith Cells Occasional, Urine Bacteria None, Urine HCG, Qual Negative 03/04/23 00:52 03/04/23 00:52 Orders (Tests/Meds): ED MEDICATIONS Generic Name Dose Route Start Last Admin Trade Name Freq PRN Reason Stop Dose Admin Acetaminophen 650 mg 03/04/23 02:22 Acetaminophen 325mg Tab PO 04/03/23 02:21 Q4HP PRN Fever or Mild Pain (1-3) Enoxaparin Sodium 40 mg 03/04/23 09:00 Enoxaparin 40mg/0.4ml Syringe SQ 04/03/23 08:59 DAILY BHUMIKA Dextrose 250 mls @ 250 mls/hr 03/04/23 01:45 03/04/23 01:40 D5w 500ml Iv IV 03/04/23 02:44 250 mls/hr .Q1H ONE Administration Ondansetron HCl 4 mg 03/04/23 02:22 Ondansetron 4mg/2ml Vial IV 04/03/23 02:21 Q8HP PRN Nausea Ondansetron HCl 4 mg 03/04/23 02:34 Ondansetron 4mg/2ml Vial IV 03/04/23 02:35 ONCE ONE Pantoprazole Sodium 40 mg 03/04/23 09:00 Pantoprazole 40mg Tablet PO 04/03/23 08:59 DAILY BHUMIKA Discontinued Medications Generic Name Dose Route Start Last Admin Trade Name Freq PRN Reason Stop Dose Admin Dextrose 500 mls @ 250 mls/hr 03/04/23 01:45 D5w 500ml Iv IV 04/03/23 01:44 .Q2H BHUMIKA ORDERS Category Date Time Status C-Peptide Stat Lab 03/04/23 00:52 Received Complete Blood Count Auto Diff Stat Lab 03/04/23 00:52 Completed Comprehensive Metabolic Panel Stat Lab 03/04/23 00:52 Completed Hemoglobin A1C Stat Lab 03/04/23 00:52 Completed Insulin Level Total Stat Lab 03/04/23 00:52 Received Urinalysis and Microscopic Stat Lab 03/04/23 01:30 Completed Urine , HCG Qual. Stat Lab 03/04/23 01:30 Completed ECG initial [place] Routine Y 03/04/23 00:14 Completed ECG Data Tracing #1: I reviewed this ECG and interpreted as documented below: Normal sinus rhythm with a ventricular rate of [address] changes concerning for ischemia. Normal axis and intervals. ECG initial impression date: 03/04/23 ECG initial impression time: 00:15 Medical Decision Narrative: In summary, this patient is a 27-year-old female presenting to the Emergency Department for evaluation of weakness, presyncope, and hypoglycemia per Dexcom. Differential diagnoses considered include but are not limited to insulinoma, malabsorption secondary to her gastric sleeve surgery, persistent hypoglycemia, medication adverse reaction, dehydration, dysrhythmia, sepsis. Ruling out the most morbid conditions drove assessment. On exam, the patient was initially somnolent but arouses to voice. She was carried in by her boyfriend. She was given oral orange juice once she was sitting upright in the bed and was able to to communicate normally. After drinking this, she had improvement in her symptoms. Fingerstick blood glucose was in the 90s at this time. She has had no fevers or infectious symptoms to suggest sepsis, and has no focal findings on exam to suggest infection. She is neurologically intact with normal vital signs on cardiac telemetry. EKG is reassuring. Workup included CBC, CMP, insulin level, and C-peptide. On multiple subsequent reassessments, the patient continued to complain of worsening symptoms that were associated with slight lowering in her blood glucoses. She would drop to the 70s from the 90s despite oral intake. Labs are otherwise reassuring with insulin and C-peptide levels pending. Given her persistent symptoms and the fact that her glucose is dropping despite her oral intake, I feel that she would benefit from admission for monitoring. She was given a bolus of D10. I had an interactive discussion with the hospitalist to admit the patient for further evaluation and management. Critical Care Critical Care Time Critical Care Time: No
[2023-03-04 01:56] LABS: Squamous Epithelial Cell,Urine Occasional #/hpf (0-5); WBC,Urine Occasional #/hpf (0-3)
--- NOTE | 2023-03-04 01:56 | PC.NURSE ---
FSBS 112, dexacom 106
[2023-03-04 02:07] LABS: Hemoglobin A1C 4.9 % (4.0-6.0)
--- NOTE | 2023-03-04 02:11 | PC.NURSE ---
Called manager data warehouse for bed at this time. Pt being admitted to hospitalist for hypoglycemia
--- NOTE | 2023-03-04 02:20 | EXP.HP ---
History of Present Illness *Admission Date: 03/04/23 *History of present illness: This is a 27-year-old female with history of prior gastric bypass surgery on , chronic vitamin deficiency, anemia endometriosis and vasovagal syncope presented to the ED for evaluation of weakness, lightheadedness, and low blood sugar readings on her Dexcom. patient stated does not have previous Hx of diabetes other than hypoglycemia during her first . Reported being feeling shaky, weakness, nauseas and fainting. Her PCP placed a Dexcom 2 days ago to monitor her blood sugar. Since then patient has been reporting low reading. Apparently symptoms appears below 70. S stated she has been struggling to keep her blood sugar up despite oral intake. It has been reading in the 50s to 60s on her Dexcom, and she feels very weak and tired. She denied vision changes, neurologic symptoms, or other concerns. On medical review, she has been seen in the emergency department twice over the last week, once for low iron and again for generalized weakness. Admitted for further work up and management. [facility] Disclaimer: The information contained in this section may have been updated after the patient was seen, as this information can be updated by other users. Medical History Endometriosis Pelvic pain Surgical History H/O bilateral salpingectomy H/O section H/O gastric sleeve H/O oophorectomy Hx of appendectomy Hx of cholecystectomy Hx of tonsillectomy Family History Other Diabetes Hypertension Stroke Social History (Updated 03/04/23 @ 03:21 by Ilene Crain RN) Smoking Status: Never smoker alcohol intake: former substance use type: denies use current occupational status: employed Travel in the last 8 weeks: None Review of Systems Review of Systems Review of systems:: pertinent systems reviewed and negative unless documented below Meds Home Medications and Allergies Home Medications Medication Instructions Recorded Confirmed Type calcium citrate 1,000 mg tablet 1,200 mg PO DAILY vitamin 04/25/22 03/04/23 History cholecalciferol (vitamin D3) 125 125 mcg PO DAILY vitamin 04/25/22 03/04/23 History mcg (5,000 unit) tablet (Vitamin D3) iron 18 mg tablet 18 mg PO DAILY vitamin 04/25/22 03/04/23 History mecobalamin (vitamin B12) 1,000 1,000 mcg PO DAILY vitamin 04/25/22 03/04/23 History mcg chewable tablet (B12 Active) elagolix 150 mg tablet (Orilissa) 150 mg PO DAILY #30 tabs 11/21/22 03/04/23 Rx New Prescriptions to Start Prescriptions: Allergies Allergy/AdvReac Type Severity Reaction Status Date / Time buspirone [From BuSpar] Allergy Hallucinati Verified 10/20/22 11:13 ng hydromorphone [From Dilaudid] Allergy Hallucinati Verified 10/20/22 11:13 ng promethazine [From Phenergan] Allergy Vomiting Verified 10/20/22 11:13 Exam Data for Last 24 hours Vital signs and Labs for Last 24 Hours: Temp Pulse Resp BP Pulse Ox O2 Del Method 97.6 F 68 12 122/86 100 Room Air 03/04/23 01:02 03/04/23 01:34 03/04/23 01:34 03/04/23 01:34 03/04/23 01:34 03/04/23 01:02 Laboratory Results - last 24 hr 03/04/23 00:52: WBC 7.0 D, RBC 4.20, Hgb 13.0, Hct 37.9, MCV 90.4, MCH 31.0, MCHC 34.3, RDW 12.6, Plt Count 183, MPV 8.1, Neut % (Auto) 63.9, Lymph % (Auto) 31.4, [place] % (Auto) 3.1, Eos % (Auto) 1.0, Baso % (Auto) 0.7, Neut # (Auto) 4.4, Lymph # (Auto) 2.2, [place] # (Auto) 0.2, Eos # (Auto) 0.1, Baso # (Auto) 0.1, Sodium 141, Potassium 3.4 L D, Chloride 105, Carbon Dioxide 28, Anion Gap 11.4, BUN 15, Creatinine 0.70, Estimated Creat Clear 126, Estimated GFR 102, Est GFR ( Amer) 123, Glucose 88, Hemoglobin A1c 4.9, Calcium 8.5, Total Bilirubin 0.4, AST 43 H, ALT 54 D, Alkaline Phosphatase 56, Total Protein 6.9, Albumin 4.3, Globulin 2.6, Albumin/Globulin Ratio 1.7 03/04/23 01:30: Urine Color Yellow, Urine Appearance Clear, Urine pH 6.0, Ur Specific [place] 1.025, Urine Protein Negative, Urine Glucose (UA) Negative, Urine Ketones Negative, Urine Blood Negative, Urine Nitrate Negative, Urine Bilirubin Negative, Urine Urobilinogen 1.0, Ur Leukocyte Esterase Negative, Urine RBC None, Urine WBC Occasional, Ur Squamous Epith Cells Occasional, Urine Bacteria None, Urine HCG, Qual Negative I & O for Last 24 hours: Intake & Output 03/01/23 03/02/23 03/03/23 03/04/23 23:59 23:59 23:59 23:59 Weight 64.86 kg Constitutional Constitutional: no acute distress *Routine HEENT Exam Head: Present normocephalic and atraumatic Eye: Absent conjunctivae pink ENT: Present mucous membranes moist *Routine Neck Exam Neck: Present full ROM *Routine Respiratory Exam Respiratory: Present CTA bilaterally and normal respiratory effort *Routine Cardiovascular Exam Cardiovascular: Present RRR *Routine Abdominal Exam Abdominal: Present soft and tenderness (generalized pelvic tenderness to mild palpation); Absent distended or guarding *Routine Rectal Exam Rectal:: deferred *Routine Genitalia Exam Genitalia:: deferred *Routine Extremities Exam Extremities: Present full ROM; Absent edema or calf tenderness *Routine Neurological Exam Neurological: Present alert, oriented X3 and moving all extremities Routine Psychiatric Exam Psychiatric: Present normal affect and cooperative H&P: Result Imaging and Cardiology EKG: Status: image reviewed by me and Preliminary report Assessment and Plan *Assessment and plan (1) Pre-syncope: Status: Acute Category: Medical Code(s): R55 - Syncope and collapse (2) Hypoglycemia: Status: Acute Category: Medical Code(s): E16.2 - Hypoglycemia, unspecified (3) Weakness: Status: Acute Category: Medical Code(s): R53.1 - Weakness (4) Status post gastric bypass for obesity: Status: Acute Category: Surgical Code(s): Z98.84 - Bariatric surgery status (5) Endometriosis: Status: Acute Category: Medical Code(s): N80.9 - Endometriosis, unspecified (6) Iron deficiency anemia: Status: Acute Qualifiers: Iron deficiency anemia type: chronic blood loss Qualified Code(s): D50.0 - Iron deficiency anemia secondary to blood loss (chronic) Category: Medical Code(s): D50.9 - Iron deficiency anemia, unspecified Plan 27-year-old female with history of prior gastric bypass surgery on , chronic vitamin deficiency, anemia endometriosis and vasovagal syncope presented to the ED for evaluation of weakness, lightheadedness, and low blood sugar readings on her Dexcom. On arrival labs work was obtained and reviewed. They are grossly unremarkable. Blood sugar was 80's. dexcom reading log reviewed. patient was given 500ml of D5. Discussed with ER doctor for admission. Plans as follow: -Near syncope and weakness associated with hypoglycemia: Admit patient for medical services. Dispo MedSurg Monitor blood sugar every 4 Encourage increased p.o., offer snack C-peptide, total insulin pending Cortisol ordered Hypoglycemia protocol as needed -Status post gastric bypass: Will need to the eval diet regimen Patient stated that was told to be on low sugar low-carb high-protein diet -History of endometriosis with anemia on iron resume home meds Low concern for DVT, Protonix for GI protection Full code Rounded on patient after nurse practitioner. Personally examined and interviewed patient. Agree with exam findings and care plan as documented. Hypoglycemia likely related to hyperinsulinemia given significant weight loss of over 100 pounds in the past year. Patient only eats 3 small meals a day with occasional snacking. Improved glucose during admission.
--- NOTE | 2023-03-04 02:39 | PC.NURSE ---
Report called to JOSE Pino
[2023-03-04] MEDS: ONDANSETRON 4MG/2ML VIAL 4 MG IV (02:53)
[2023-03-04 03:12] VITALS: BP 106/70; PULSE 80; RESP 18; TEMP 36.7
[2023-03-04] MEDS: ACETAMINOPHEN 325MG TAB 650 MG PO (03:28)
[2023-03-04 04:00] VITALS: BMI 21.7
[2023-03-04] MEDS: POTASSIUM CHLORIDE 20MEQ TAB 40 MEQ PO (07:26)
[2023-03-04 07:31] VITALS: BP 107/57; PULSE 71; RESP 18; TEMP 36.4; O2SAT 99
[2023-03-04 07:54] LABS: Basophils % 0.5 % (0.1-2.0); Eosinophils % 0.8 % (0.1-12.0); Hematocrit 34.4 % (37.0-47.0); Lymphocytes # 1.4 K/mm3 (0.7-4.5); Lymphocytes % 31.4 % (10-50); Mean Corpuscular HGB Conc 34.9 g/dL (31.8-35.4); Mean Corpuscular Hemoglobin 30.7 pg (27.0-31.2); Mean Corpuscular Volume 87.9 fl (81-99); Mean Platelet Volume 8.3 fl (7.4-10.4); Monocytes # 0.2 K/mm3 (0.1-1.0); Monocytes % 4.5 % (1.7-9.3); Neutrophils # 2.9 K/mm3 (1.8-7.8); Neutrophils % 62.9 % (37.0-80.0); Platelet Count 176 K/mm3 (142-424); Red Blood Count 3.91 M/mm3 (4.20-5.40); Red Cell Distribution Width 12.7 % (11.5-17.5); White Blood Count 4.6 K/mm3 (4.8-10.8)
[2023-03-04 08:22] LABS: Chloride 108 mmol/L (98-107)
[2023-03-04 08:23] LABS: Potassium 3.9 mmoL/L (3.5-5.1); Sodium 139 mmol/L (136-145)
[2023-03-04 08:25] LABS: Alanine Aminotransferase 43 U/L (12-78); Albumin Level 3.6 g/dl (3.5-5.0); Albumin/Globulin Ratio 1.6 (1.1-1.8); Alkaline Phosphatase 52 U/L (38-126); Anion Gap 6.9 mEq/L (5-15); Aspartate Amino Transferase 35 U/L (14-36); Bilirubin,Total 0.5 mg/dl (0.2-1.3); Blood Urea Nitrogen 13 mg/dl (7-17); Carbon Dioxide 28 mmol/L (22.0-30.0); Creatinine Clearance Estimated 187 mL/min (50-200); Estimated Glomerular Filt Rate 150 ml/min (>60); GFR (African American) 182 ML/MIN (>60); Globulin 2.3 g/dL (1.3-3.2); Total Protein,Serum 5.9 g/dl (6.3-8.2)
--- NOTE | 2023-03-04 08:25 | EXP.DC.SUM ---
General Admission date:: 03/04/23 Discharge date: 03/04/23 HPI HPI HPI: This is a 27-year-old female with history of prior gastric bypass surgery on , chronic vitamin deficiency, anemia endometriosis and vasovagal syncope presented to the ED for evaluation of weakness, lightheadedness, and low blood sugar readings on her Dexcom. patient stated does not have previous Hx of diabetes other than hypoglycemia during her first . Reported being feeling shaky, weakness, nauseas and fainting. Her PCP placed a Dexcom 2 days ago to monitor her blood sugar. Since then patient has been reporting low reading. Apparently symptoms appears below 70. S stated she has been struggling to keep her blood sugar up despite oral intake. It has been reading in the 50s to 60s on her Dexcom, and she feels very weak and tired. She denied vision changes, neurologic symptoms, or other concerns. On medical review, she has been seen in the emergency department twice over the last week, once for low iron and again for generalized weakness. Admitted for further work up and management. Hospital Course Hospital Course Hospital Course: 27-year-old female with history of prior gastric bypass surgery on , chronic vitamin deficiency, anemia endometriosis and vasovagal syncope presented to the ED for evaluation of weakness, lightheadedness, and low blood sugar readings on her Dexcom. On arrival labs work was obtained and reviewed. They are grossly unremarkable. Blood sugar was 80's. dexcom reading log reviewed showing glucose as low as 54 but generally in the 60s. Patient responded to D5 infusion. Glucoses remained stable over course of admission. Tolerating p.o. intake. Stable for discharge home. Problems addressed as follows: -Near syncope and weakness associated with hypoglycemia: -Status post gastric sleeve Patient admitted for observation due to hypoglycemia. She has had significant weight loss over the past year of more than 100 pounds secondary to gastric sleeve. States she eats 3 meals a day with occasional snacking. Meals are small approximately 4 to 8 ounces. Suspect her low blood sugar is related to inadequate intake as she is mainly eating protein and very few carbs. C-peptide and insulin obtained and still pending. Cortisol levels also pending. Given stability in blood sugar, extensive counseling on adjusting her intake to 5 small meals a day for more consistent glucose control. Recommend glucose load prior to working out such as 15 g of glucose, glucose gel, Gatorade, or juice. Would benefit from adding complex carbohydrates back to her diet. Otherwise stable during admission. Continue monitoring with CGM. -Continue home supplements Stable to discharge home. Follow-up with PCP for further management. Exam Data for Last 24 hours Vital signs and Labs for Last 24 Hours: Temp Pulse Resp BP Pulse Ox O2 Del Method 97.5 F L 71 18 107/57 L 99 Room Air 03/04/23 07:03/04/23 07:03/04/23 07:03/04/23 07:03/04/23 07:03/04/23 07:34 Laboratory Results - last 24 hr 03/04/23 00:52: WBC 7.0 D, RBC 4.20, Hgb 13.0, Hct 37.9, MCV 90.4, MCH 31.0, MCHC 34.3, RDW 12.6, Plt Count 183, MPV 8.1, Neut % (Auto) 63.9, Lymph % (Auto) 31.4, [place] % (Auto) 3.1, Eos % (Auto) 1.0, Baso % (Auto) 0.7, Neut # (Auto) 4.4, Lymph # (Auto) 2.2, [place] # (Auto) 0.2, Eos # (Auto) 0.1, Baso # (Auto) 0.1, Sodium 141, Potassium 3.4 L D, Chloride 105, Carbon Dioxide 28, Anion Gap 11.4, BUN 15, Creatinine 0.70, Estimated Creat Clear 126, Estimated GFR 102, Est GFR ( Amer) 123, Glucose 88, Hemoglobin A1c 4.9, Calcium 8.5, Total Bilirubin 0.4, AST 43 H, ALT 54 D, Alkaline Phosphatase 56, Total Protein 6.9, Albumin 4.3, Globulin 2.6, Albumin/Globulin Ratio 1.7 03/04/23 01:30: Urine Color Yellow, Urine Appearance Clear, Urine pH 6.0, Ur Specific [place] 1.025, Urine Protein Negative, Urine Glucose (UA) Negative, Urine Ketones Negative, Urine Blood Negative, Urine Nitrate Negative, Urine Bilirubin Negative, Urine Urobilinogen 1.0, Ur Leukocyte Esterase Negative, Urine RBC None, Urine WBC Occasional, Ur Squamous Epith Cells Occasional, Urine Bacteria None, Urine HCG, Qual Negative 03/04/23 07:18: WBC 4.6 L D, RBC 3.91 L, Hgb 12.0 L, Hct 34.4 L, MCV 87.9, MCH 30.7, MCHC 34.9, RDW 12.7, Plt Count 176, MPV 8.3, Neut % (Auto) 62.9, Lymph % (Auto) 31.4, [place] % (Auto) 4.5, Eos % (Auto) 0.8, Baso % (Auto) 0.5, Neut # (Auto) 2.9, Lymph # (Auto) 1.4, [place] # (Auto) 0.2, Eos # (Auto) 0.0, Baso # (Auto) 0.0 I & O for Last 24 hours: Intake & Output 03/01/23 03/02/23 03/03/23 03/04/23 23:59 23:59 23:59 23:59 Intake Total 740 / 740 Balance 740 / 740 Weight 68.946 kg Constitutional Constitutional: no acute distress *Routine HEENT Exam Head: Present normocephalic Eye: Present EOMI and PERRL ENT: Present mucous membranes moist *Routine Neck Exam Neck: Present supple; Absent lymphadenopathy *Routine Respiratory Exam Respiratory: Present CTA bilaterally *Routine Cardiovascular Exam Cardiovascular: Present RRR *Routine Abdominal Exam Abdominal: Present soft and normoactive bowel sounds; Absent tenderness *Routine Extremities Exam Extremities: Absent cyanosis, clubbing or edema *Routine Skin Exam Skin: Present warm; Absent rash *Routine Neurological Exam Neurological: Present alert, oriented X3 and moving all extremities; Absent altered mental status Results Data Completed and Pending Labs on day of discharge: Labs from last 24 hours 03/04/23 03/04/23 03/04/23 07:18 01:30 00:52 WBC 4.6 L D 7.0 D RBC 3.91 L 4.20 Hgb 12.0 L 13.0 Hct 34.4 L 37.9 MCV 87.9 90.4 MCH 30.7 31.0 MCHC 34.9 34.3 RDW 12.7 12.6 Plt Count 176 183 MPV 8.3 8.1 Neut % (Auto) 62.9 63.9 Lymph % (Auto) 31.4 31.4 [place] % (Auto) 4.5 3.1 Eos % (Auto) 0.8 1.0 Baso % (Auto) 0.5 0.7 Neut # (Auto) 2.9 4.4 Lymph # (Auto) 1.4 2.2 [place] # (Auto) 0.2 0.2 Eos # (Auto) 0.0 0.1 Baso # (Auto) 0.0 0.1 Sodium 141 Potassium 3.4 L D Chloride 105 Carbon Dioxide 28 Anion Gap 11.4 BUN 15 Creatinine 0.70 Estimated Creat Clear 126 Estimated GFR 102 Est GFR ( Amer) 123 Glucose 88 Hemoglobin A1c 4.9 Calcium 8.5 Total Bilirubin 0.4 AST 43 H ALT 54 D Alkaline Phosphatase 56 Total Protein 6.9 Albumin 4.3 Globulin 2.6 Albumin/Globulin Ratio 1.7 Urine Color Yellow Urine Appearance Clear Urine pH 6.0 Ur Specific [place] 1.025 Urine Protein Negative Urine Glucose (UA) Negative Urine Ketones Negative Urine Blood Negative Urine Nitrate Negative Urine Bilirubin Negative Urine Urobilinogen 1.0 Ur Leukocyte Esterase Negative Urine RBC None Urine WBC Occasional Ur Squamous Epith Cells Occasional Urine Bacteria None Urine HCG, Qual Negative DS: Diagnosis Discharge Diagnosis (1) Pre-syncope: Status: Acute Code(s): R55 - Syncope and collapse (2) Hypoglycemia: Status: Acute Code(s): E16.2 - Hypoglycemia, unspecified (3) Weakness: Status: Acute Code(s): R53.1 - Weakness (4) Status post gastric bypass for obesity: Status: Acute Code(s): Z98.84 - Bariatric surgery status (5) Endometriosis: Status: Acute Code(s): N80.9 - Endometriosis, unspecified (6) Iron deficiency anemia: Status: Acute Code(s): D50.9 - Iron deficiency anemia, unspecified Qualifiers: Iron deficiency anemia type: chronic blood loss Qualified Code(s): D50.0 - Iron deficiency anemia secondary to blood loss (chronic) Meds Home Medications and Allergies Home Medications Medication Instructions Recorded Confirmed Type calcium citrate 1,000 mg tablet 1,200 mg PO DAILY vitamin 04/25/22 03/04/23 History cholecalciferol (vitamin D3) 125 125 mcg PO DAILY vitamin 04/25/22 03/04/23 History mcg (5,000 unit) tablet (Vitamin D3) iron 18 mg tablet 18 mg PO DAILY vitamin 04/25/22 03/04/23 History mecobalamin (vitamin B12) 1,000 1,000 mcg PO DAILY vitamin 04/25/22 03/04/23 History mcg chewable tablet (B12 Active) elagolix 150 mg tablet (Orilissa) 150 mg PO DAILY #30 tabs 11/21/22 03/04/23 Rx New Prescriptions to Start Prescriptions: Allergies Allergy/AdvReac Type Severity Reaction Status Date / Time buspirone [From BuSpar] Allergy Hallucinati Verified 10/20/22 11:13 ng hydromorphone [From Dilaudid] Allergy Hallucinati Verified 10/20/22 11:13 ng promethazine [From Phenergan] Allergy Vomiting Verified 10/20/22 11:13 Discharge Plan Disposition Patient Disposition: Home, Self-Care Condition: Good Follow up Plan Follow up with: Fabián Dorantes APRN [Referring] - Enter time for follow up (Please call for follow up appt. ) Prescriptions/Medication Reconciliation: Continued Orilissa 150 mg tablet 150 mg PO DAILY Qty: 30 6RF iron 18 mg Tablet 18 mg PO DAILY calcium citrate 1,000 mg Tablet 1,200 mg PO DAILY cholecalciferol (vitamin D3) [Vitamin D3] 125 mcg (5,000 unit) Tablet 125 mcg PO DAILY mecobalamin (vitamin B12) [B12 Active] 1,000 mcg Tablet,Chewable 1,000 mcg PO DAILY Discontinued cefdinir 300 mg capsule 300 mg PO BID 5 Days Qty: 10 0RF ibuprofen 800 mg tablet 800 mg PO Q8H PRN (Reason: pain) Qty: 20 0RF Problem Reconciliation Problems Reviewed?: Yes Patient Discharge Instructions ACTIVITY: Continue current activity DIET: continue same diet Patient Instructions: DI for Hypoglycemia Providers Primary Care Provider: Provider,Referral Admit Provider: Andrew Araya Attending Provider: Andrew Araya
[2023-03-04 08:26] LABS: POC Glucose,Bedside 100 (70-110)
[2023-03-04 08:26] LABS: Calcium 8.5 mg/dl (8.4-10.2); Glucose 91 mg/dl (74-100)
[2023-03-04] MEDS: ENOXAPARIN 40MG/0.4ML SYRINGE 40 MG SQ (08:52)
[2023-03-04] MEDS: PANTOPRAZOLE 40MG TABLET 40 MG PO (08:52)
[2023-03-04] MEDS: CHOLECALCIFEROL 1,000 UNITS (25MCG) TABLET 125 MCG PO (09:44)
[2023-03-04 16:31] LABS: POC Glucose,Bedside 121 (70-110)
[2023-03-04 16:31] LABS: POC Glucose,Bedside 80 (70-110)
[2023-03-04 16:31] LABS: POC Glucose,Bedside 81 (70-110)
[2023-03-04 16:31] LABS: POC Glucose,Bedside 91 (70-110)
[2023-03-05 14:10] LABS: C-Peptide 5.5 ng/mL (1.1-4.4); Insulin Level Total 15.9 uIU/mL (2.6-24.9)
--- NOTE | 2023-03-05 14:59 | CARE MANAGER ---
Contacted patient related to hospital discharge. patient states she had follow up appointment with PCP today and that she is being scheduled with sales development director. She denies any questions or concerns. JOSE Melo
== END 2023-03-04 12:03 | disposition home or self-care (01) ==
LOC: ER 01:36 → 2ND 02:23
PROVIDERS: Nurse Practitioner Family; Admitting Provider Internal Medicine Adolescent Medicine; Emergency Provider Emergency Medicine; Visit Provider Internal Medicine Adolescent Medicine
DX: E16.2 Hypoglycemia, unspecified (principal); R55 Syncope and collapse; Z98.84 Bariatric surgery status; N81.9 Female genital prolapse, unspecified; D50.9 Iron deficiency anemia, unspecified; N80.9 Endometriosis, unspecified
CPT/HCPCS: 80053; 81001; 81025; 82533; 82962; 83036; 83525; 84681; 85025; 93005; G0378; J2405; J7060

== ENCOUNTER 2023-03-08 10:15 | Outpatient (CLI) | payer BC, SELFPAY ==
--- NOTE | 2023-03-08 10:23 | US_ITS ---
FINAL REPORT CLINICAL HISTORY: HYPOGLYCEMIA, UNSPECIFIED COMPARISON: CT abdomen and pelvis 08/07/2022 FINDINGS: Sonographic images of the right upper quadrant were obtained. The pancreas is partially obscured. There are hyperechoic foci in the liver, likely representing focal fatty infiltration as seen on prior CT scan. The gallbladder is surgically absent. The common duct measures 3 mm. Limited images of the right kidney are unremarkable. IMPRESSION: Probable focal fatty infiltration of the liver. Reviewed, Interpreted and Dictated by Chris Brian III, MD Transcribed by Lorena Marrufo Authenticated and [facility]
== END 2023-03-08 23:59 ==
PROVIDERS: Visit Provider Nurse Practitioner Family
DX: R06.09 Other forms of dyspnea (principal); R07.89 Other chest pain; R42 Dizziness and giddiness; R55 Syncope and collapse; R94.31 Abnormal electrocardiogram [ECG] [EKG]; E16.2 Hypoglycemia, unspecified
CPT/HCPCS: 76705; 93270

== ENCOUNTER 2023-09-17 14:36 | Outpatient (CLI) | payer BC, SELFPAY ==
--- NOTE | 2023-09-17 | US_ITS ---
FINAL REPORT TECHNIQUE: Real-time grayscale and color ultrasound of the soft tissues of the neck was performed. CLINICAL HISTORY: .enlarged lymph nodes COMPARISON: None FINDINGS: Ultrasound images of the soft tissues of the neck in the area of concern were obtained. Color Doppler images were submitted. Salivary glands are unremarkable bilaterally. There is a large cervical lymph node on the right measuring 2.7 cm favored to be reactive. There is also a normal 1.3 cm left cervical lymph node. IMPRESSION: Right cervical lymphadenopathy favored to be reactive. Consider follow-up. Reviewed, Interpreted and Dictated by Naomi Da Silva MD Transcribed by Lorena Marrufo Authenticated and [facility][1]
--- NOTE | 2023-09-17 14:41 | US_ITS ---
FINAL REPORT CLINICAL HISTORY: ENLARGED LYMPH NODES COMPARISON: None FINDINGS: Limited sonographic images were obtained of the soft tissues in the region of interest in the right axilla. There are subcentimeter benign-appearing lymph nodes at the region of interest. IMPRESSION: Benign appearing lymph nodes. Reviewed, Interpreted and Dictated by Jorge L Ortega MD Transcribed by Lorena Marrufo Authenticated and [facility]
== END 2023-09-17 23:59 | disposition home or self-care (01) ==
LOC: RAD 14:37
PROVIDERS: PCP Nurse Practitioner Family; Visit Provider Nurse Practitioner Family
DX: R59.0 Localized enlarged lymph nodes (principal); R59.1 Generalized enlarged lymph nodes
CPT/HCPCS: 76536; 76642

== ENCOUNTER 2023-10-05 19:56 | Emergency (ER) | payer BC, SELFPAY ==
[2023-10-05 19:56] VITALS: BP 118/71; PULSE 61; RESP 18; TEMP 36.6; O2SAT 100; BMI 24.8
[2023-10-05 20:05] VITALS: BP 108/66; PULSE 54; RESP 16; O2SAT 98
--- NOTE | 2023-10-05 20:18 | PC.NURSE ---
Pt given 4 Zofran IV in route
[2023-10-05 20:30] VITALS: BP 108/66; PULSE 66; RESP 20; O2SAT 100
--- NOTE | 2023-10-05 20:51 | CT_ITS ---
PROCEDURE INFORMATION: Exam: CT Abdomen And Pelvis With Contrast Exam date and time: 10/05/2023 9:38 PM Age: 28 years old Clinical indication: Vomiting; Abdominal pain; Additional info: Ruq abd pain TECHNIQUE: Imaging protocol: Computed tomography of the abdomen and pelvis with contrast. Total images: 286 Radiation optimization: All CT scans at this facility use at least one of these dose optimization techniques: automated exposure control; mA and/or kV adjustment per patient size (includes targeted exams where dose is matched to clinical indication); or iterative reconstruction. Contrast material: ISOVUE; Contrast volume: 75 ml; Contrast route: IV; COMPARISON: CT ABDOMEN PELVIS W CON 10/16/2022 12:52 AM FINDINGS: Lungs: Lung bases are clear. Heart: Normal heart size. Diaphragm: Tiny hiatal hernia. Liver: Elongated right hepatic lobe implying Williams's segment as a normal variant. Periportal edema. Heterogeneous liver attenuation. Normal liver contour. No discrete mass. Areas of focal fatty infiltration in the subcapsular left hepatic lobe and along the falciform ligament, similar to the prior exam. Gallbladder and biliary ducts: Status post cholecystectomy. No biliary ductal dilatation. Pancreas: Normal. No ductal dilation. Spleen: Normal. No splenomegaly. Adrenal glands: Normal. No mass. Kidneys and ureters: No hydronephrosis, nephrolithiasis, or renal mass. Stomach and bowel: Status post gastric sleeve. Residual stomach is collapsed. No ileus or bowel obstruction. Fluid-filled nondilated small bowel scattered air-fluid levels may reflect a nonspecific enteritis. Unremarkable terminal ileum. Unremarkable colon and rectum. Appendix: Status post appendectomy. Intraperitoneal space: No ascites. No free air. Vasculature: Abdominal aorta is normal in caliber. Major abdominal vessels enhance appropriately. Distended IVC and hepatic veins. Lymph nodes: Unremarkable. No enlarged lymph nodes. Urinary bladder: Unremarkable as visualized. Reproductive: Moderate free pelvic fluid with simple water attenuation. 2 cm recently collapsed right ovarian cyst. Unremarkable uterus. Nonvisualized left ovary. Bones/joints: Unremarkable. No acute fracture. Soft tissues: Nonspecific thickening of the umbilicus. No hernia. IMPRESSION: 1. Heterogeneous liver attenuation with periportal edema resembling passive hepatic congestion. Differential would include steatosis and hepatitis. Correlate with liver function. 2. Dilated IVC and hepatic veins implying fluid overload or recent IV hydration. 3. 2 cm recently collapsed right ovarian cyst with moderate free pelvic fluid. 4. Status post appendectomy. 5. Status post gastric sleeve.
--- NOTE | 2023-10-05 20:53 | HMH.EDGENADL ---
Discharge Plan Disposition Patient Disposition: Home, Self-Care Condition: Good Prescriptions Prescriptions: New ondansetron 4 mg tablet,disintegrating 4 mg PO Q6H PRN (Reason: nausea and vomiting) Qty: 10 0RF No Action multivitamin [Daily Multi-Vitamin] Tablet 1 tab PO DAILY Orilissa 150 mg tablet 150 mg PO DAILY Qty: 30 6RF iron 18 mg Tablet 18 mg PO DAILY calcium citrate 1,000 mg Tablet 1,200 mg PO DAILY cholecalciferol (vitamin D3) [Vitamin D3] 125 mcg (5,000 unit) Tablet 125 mcg PO DAILY mecobalamin (vitamin B12) [B12 Active] 1,000 mcg Tablet,Chewable 1,000 mcg PO DAILY Referrals Follow up/Referrals: Fabián Dorantes APRN [Primary Care Provider] - See instructions Activity Restrictions/Add. Instructions Additional Instructions/Restrictions: You were evaluated in the ER and are appropriate for discharge at this time. Take the prescribed ondansetron if needed for nausea/vomiting. Make an appointment with your primary care physician for reevaluation, they may choose to refer you to GI for continued workup. Return to the ER with new, worsening, or otherwise concerning symptoms. Clinical Impressions Clinical Impression: Right upper quadrant abdominal pain Instructions Patient Instructions: DI for Acute Abdominal Pain Print Language Print Language: Guinean Discharge ED Provider: Cecy Jacobo Adult HPI General Chief complaint: Abdominal Pain Stated complaint: abd pain Time Seen by Provider: 10/05/23 20:33 Mode of Arrival: EMS Source of Information: Patient Limitations: No Limitations Description of Symptoms (Recalled from ER Triage Doc. by RN): Pt arrives via EMS with complaints of mid abdominal pain x 3 days associated with nausea and vomiting. Pt is currently being treated with Dr Dorantes for elevated liver enzymes, pt is concerned her pain is from her liver. History of Present Illness HPI narrative: 28-year-old female presents to the ER for complaints of mid and right upper quadrant abdominal pain for the last 2 to 3 days. Patient is having nausea and vomiting. Patient is being followed by her primary care for concerns of liver enzymes. Patient is worried that pain could be related to her liver. She has a history of appendectomy and cholecystectomy. Patient also has history of gastric sleeve, oophorectomy, salpingectomy. Patient denies any fevers, chills, chest pain, difficulty breathing, diarrhea, constipation, dysuria, or hematuria. Patient reports taking ibuprofen for her pain. Related Data Home Medications ?Medication ?Instructions ?Recorded ?Confirmed calcium citrate 1,000 mg tablet 1,200 mg PO DAILY vitamin 04/25/22 03/08/23 cholecalciferol (vitamin D3) 125 125 mcg PO DAILY vitamin 04/25/22 03/08/23 mcg (5,000 unit) tablet (Vitamin D3) iron 18 mg tablet 18 mg PO DAILY vitamin 04/25/22 03/08/23 mecobalamin (vitamin B12) 1,000 1,000 mcg PO DAILY vitamin 04/25/22 03/08/23 mcg chewable tablet (B12 Active) multivitamin (Daily Multi-Vitamin 1 tab PO DAILY 03/08/23 03/08/23 tablet) Previous Rx's ?Medication ?Instructions ?Recorded elagolix 150 mg tablet (Orilissa) 150 mg PO DAILY #30 tabs 11/21/22 ondansetron 4 mg disintegrating 4 mg PO Q6H PRN nausea and 10/05/23 tablet vomiting #10 tabs Allergies Allergy/AdvReac Type Severity Reaction Status Date / Time buspirone [From BuSpar] Allergy Hallucinati Verified 03/08/23 11:37 ng hydromorphone [From Dilaudid] Allergy Hallucinati Verified 03/08/23 11:37 ng promethazine [From Phenergan] Allergy Vomiting Verified 03/08/23 11:37 PFSH PFS Disclaimer: The information contained in this section may have been updated after the patient was seen, as this information can be updated by other users. Medical History Abnormal uterine bleeding (AUB) Endometriosis Migraine Pelvic pain Surgical History H/O bilateral salpingectomy H/O section H/O gastric sleeve H/O oophorectomy Hx of appendectomy Hx of cholecystectomy Hx of tonsillectomy Family History Other Diabetes Hypertension Stroke Social History Smoking Status: Never smoker alcohol intake: former substance use type: denies use current occupational status: employed Travel in the last 8 weeks: None ROS Obtained: Yes All systems reviewed & no additional complaints except as documented Positive ROS per HPI Physical Exam General General appearance: alert and in no apparent distress Head Head exam: atraumatic and normocephalic Eye Eye exam: Present PERRL and EOMI ENT ENT exam: Present mucous membranes moist Neck Neck exam: Present normal inspection and full ROM Chest Chest inspection: Present symmetric chest wall rise Respiratory Respiratory exam: Present normal lung sounds bilaterally; Absent respiratory distress, wheezes or stridor Cardiovascular Cardiovascular exam: Present regular rate and normal rhythm Abdominal Exam Abdominal exam: Present soft and tenderness (Right upper quadrant); Absent distention, guarding, rebound or rigidity Comment: Did not appreciate organomegaly Extremities Exam Extremities exam: Present full ROM; Absent tenderness or edema Neurological Exam Neurological exam: Present alert and oriented X3; Absent motor sensory deficit Psychiatric Psychiatric exam: Present normal affect and normal mood Skin Skin exam: Present warm and dry Medical Decision Making Medical Records Medical records reviewed: Yes I reviewed the patient's medical records. MR Comment: Patient was evaluated by OB for pelvic pain in October 2022 and had laparoscopic surgery at that time that demonstrated inflamed uterus. Plan was to discuss Orilissa. Salgado Inquiry Pt receiving controlled substance: No Vital Signs: 10/05/23 19:56 10/05/23 20:05 10/05/23 20:30 Temperature 97.8 F Temperature Source Oral Pulse Rate 54 L 66 Pulse Rate [Left] 61 Respiratory Rate 18 16 20 Blood Pressure 108/66 L 108/66 L Blood Pressure [Right Arm] 118/71 Blood Pressure Mean 80 Blood Pressure Mean [Right Arm] 86 Blood Pressure Source [Right Arm] Automatic Cuff Blood Pressure Position [Right Arm] Supine 02 Sat by Pulse Oximetry 100 98 100 Oxygen Delivery Method Room Air Room Air Room Air 10/05/23 21:00 10/05/23 21:46 10/05/23 22:00 Temperature Temperature Source Pulse Rate 65 58 L 57 L Pulse Rate [Left] Respiratory Rate Blood Pressure 108/66 L 140/93 H 119/76 Blood Pressure [Right Arm] Blood Pressure Mean Blood Pressure Mean [Right Arm] Blood Pressure Source [Right Arm] Blood Pressure Position [Right Arm] 02 Sat by Pulse Oximetry 100 100 100 Oxygen Delivery Method Lab Data Lab Results 10/05/23 19:45: WBC 6.5, RBC 3.95 L, Hgb 12.9, Hct 36.7 L, MCV 92.7, MCH 32.5 H, MCHC 35.1, RDW 13.3, Plt Count 168, MPV 7.5, Neut % (Auto) 65.6, Lymph % (Auto) 27.3, Emmons % (Auto) 5.9, Eos % (Auto) 0.6, Baso % (Auto) 0.6, Neut # (Auto) 4.2, Lymph # (Auto) 1.8, Emmons # (Auto) 0.4, Eos # (Auto) 0.0, Baso # (Auto) 0.0, PT 10.6, INR 0.94, Sodium 139, Potassium 3.5, Chloride 107, Carbon Dioxide 25, Anion Gap 10.5, BUN 11, Creatinine 0.70, Estimated Creat Clear 134, Estimated GFR 101, Est GFR ( Amer) 122, Glucose 91, Calcium 9.5, Total Bilirubin 1.1, AST 29, ALT 23, Alkaline Phosphatase 65, Total Creatine Kinase 84, CK-MB (CK-2) 0.3, CK-MB (CK-2) Rel Index 0.4, Troponin I < 0.01, Total Protein 7.5 D, Albumin 4.6, Globulin 2.9, Albumin/Globulin Ratio 1.6, Lipase 57, Serum HCG, Qual Negative 10/05/23 19:45 10/05/23 19:45 Orders (Tests/Meds): ED MEDICATIONS Generic Name Dose Route Start Last Admin Trade Name Freq PRN Reason Stop Dose Admin Sodium Chloride 10 ml 10/05/23 21:45 10/05/23 21:45 Sodium Chloride 0.9% 10ml Syr (Rad Only) IV 11/04/23 21:44 10 ml NEEDED PRN Administration Maintain IV Site Discontinued Medications Generic Name Dose Route Start Last Admin Trade Name Freq PRN Reason Stop Dose Admin Acetaminophen 1,000 mg 10/05/23 20:59 10/05/23 21:10 Acetaminophen 1,000mg/100ml Vial IV 10/05/23 21:00 1,000 mg ONCE ONE Administration Belladonna Alkaloids 60 ml 10/05/23 20:59 10/05/23 21:10 Belladonna Alkaloids 60 Ml Ml PO 10/05/23 21:00 60 ml ONCE ONE Administration Diphenhydramine HCl 25 mg 10/05/23 21:41 10/05/23 21:43 Diphenhydramine 50mg/Ml Vial IV 10/05/23 21:42 25 mg ONCE ONE Administration Lactated Ringer's 1,000 mls @ 999 mls/hr 10/05/23 20:59 10/05/23 21:11 Lactated Ringer's 1000 Ml Bag IV 10/05/23 21:59 999 mls/hr .Q1H1M ONE Administration Iopamidol 75 ml 10/05/23 21:45 10/05/23 21:45 Iopamidol-370 (76%);100ml Bottle IV 10/05/23 21:46 75 ml ONCE ONE Administration ORDERS Category Date Time Status CT abdomen pelvis w con Stat Cat Scan 10/05/23 20:51 Completed Cardiac Enzymes Stat Lab 10/05/23 19:45 Completed Complete Blood Count Auto Diff Stat Lab 10/05/23 19:45 Completed Comprehensive Metabolic Panel Stat Lab 10/05/23 19:45 Completed HCG Qualitative, Serum Stat Lab 10/05/23 19:45 Completed Lactic Acid Stat Lab 10/05/23 20:34 Ordered Lipase Stat Lab 10/05/23 19:45 Completed Prothrombin Time INR Stat Lab 10/05/23 19:45 Completed Urinalysis and Microscopic Stat Lab 10/05/23 20:34 Ordered Medical Decision Narrative: In summary, this 28-year-old female presents to the emergency department today with concerns of right upper quadrant abdominal pain, nausea, vomiting. On initial evaluation patient is hemodynamically stable, afebrile, tenderness to palpation of the right upper quadrant without organomegaly, no rebound or guarding, remainder of exam benign. Differential diagnosis includes but is not limited to transaminitis, pancreatitis, bowel obstruction, endometriosis, electrolyte abnormality, dehydration. Based on these concerns, I ordered serum labs, CT imaging. Patient received GI cocktail, IV fluids, IV acetaminophen for treatment. Labs personally reviewed demonstrate no leukocytosis or anemia, normal platelets, PT/INR normal, CMP normal, no findings of liver abnormality or kidney dysfunction. XR personally interpreted demonstrates []. CT imaging personally interpreted demonstrate no acute intra-abdominal abnormality, no finding of surgical pathology. See radiology read for final interpretation which does demonstrate potential passive hepatic congestion, possible hepatic steatosis versus hepatitis. Patient's LFTs are reassuring against acute hepatitis, collapsed right ovarian cyst is unlikely to contribute clinically at this time given the location of patient's pain On reassessment patient is sleeping soundly. She is resting comfortably. Patient is appropriate for discharge at this time. I prescribe Zofran for outpatient management. I encouraged her to follow-up with her primary care doctor. Patient was given instructions on symptomatic management, follow up instructions, and return precautions for the emergency department. Patient indicated understanding and was discharged in stable condition. Critical Care Critical Care Time Critical Care Time: No
[2023-10-05 21:00] VITALS: BP 108/66; PULSE 65; O2SAT 100
[2023-10-05 21:08] LABS: Basophils % 0.6 % (0.1-2.0); Eosinophils % 0.6 % (0.1-12.0); Hematocrit 36.7 % (37.0-47.0); Hemoglobin 12.9 g/dL (12.2-16.2); Lymphocytes # 1.8 K/mm3 (0.7-4.5); Lymphocytes % 27.3 % (10-50); Mean Corpuscular HGB Conc 35.1 g/dL (31.8-35.4); Mean Corpuscular Hemoglobin 32.5 pg (27.0-31.2); Mean Corpuscular Volume 92.7 fl (81-99); Mean Platelet Volume 7.5 fl (7.4-10.4); Monocytes # 0.4 K/mm3 (0.1-1.0); Monocytes % 5.9 % (1.7-9.3); Neutrophils # 4.2 K/mm3 (1.8-7.8); Neutrophils % 65.6 % (37.0-80.0); Platelet Count 168 K/mm3 (142-424); Red Blood Count 3.95 M/mm3 (4.20-5.40); Red Cell Distribution Width 13.3 % (11.5-17.5); White Blood Count 6.5 K/mm3 (4.8-10.8)
[2023-10-05] MEDS: ACETAMINOPHEN 1,000MG/100ML VIAL 1000 MG IV (21:10)
[2023-10-05] MEDS: BELLADONNA ALKALOIDS 60 ML ML PO (21:10)
[2023-10-05] MEDS: LACTATED RINGERS 1000ML 1,000 ML 999 ML IV (21:11)
[2023-10-05 21:13] LABS: INR 0.94 (0.9-1.1); Prothrombin Time 10.6 seconds (10.1-12.5)
[2023-10-05 21:15] LABS: Albumin Level 4.6 g/dl (3.5-5.0); Chloride 107 mmol/L (98-107); Potassium 3.5 mmoL/L (3.5-5.1); Sodium 139 mmol/L (136-145)
[2023-10-05 21:17] LABS: HCG Qualitative, Serum Negative (Negative)
[2023-10-05 21:18] LABS: Alanine Aminotransferase 23 U/L (12-78); Albumin/Globulin Ratio 1.6 (1.1-1.8); Alkaline Phosphatase 65 U/L (38-126); Anion Gap 10.5 mEq/L (5-15); Aspartate Amino Transferase 29 U/L (14-36); Bilirubin,Total 1.1 mg/dl (0.2-1.3); Blood Urea Nitrogen 11 mg/dl (7-17); Calcium 9.5 mg/dl (8.4-10.2); Carbon Dioxide 25 mmol/L (22.0-30.0); Creatine Kinase 84 U/L (30-135); Creatinine Clearance Estimated 134 mL/min (50-200); Estimated Glomerular Filt Rate 101 ml/min (>60); GFR (African American) 122 ML/MIN (>60); Globulin 2.9 g/dL (1.3-3.2); Glucose 91 mg/dl (74-100); Lipase 57 U/L (23-300); Total Protein,Serum 7.5 g/dl (6.3-8.2)
[2023-10-05 21:28] LABS: CKMB Relative Index 0.4 U/L (0-4.0); Creatine Kinase MB 0.3 ng/ml (0.0-2.03)
[2023-10-05 21:39] LABS: Troponin I < 0.01 ng/ml (0.00-0.034)
[2023-10-05] MEDS: diphenhydrAMINE 50MG/ML VIAL 25 MG IV (21:43)
[2023-10-05] MEDS: IOPAMIDOL-370 (76%);100ML BOTTLE 75 ML IV (21:45)
[2023-10-05] MEDS: SODIUM CHLORIDE 0.9% 10ML SYR (RAD ONLY) 10 ML IV (21:45)
[2023-10-05 21:46] VITALS: BP 140/93; PULSE 58; O2SAT 100
[2023-10-05 22:00] VITALS: BP 119/76; PULSE 57; O2SAT 100
[2023-10-06 00:08] VITALS: BP 131/74; PULSE 74; RESP 16; TEMP 36.6; O2SAT 98
== END 2023-10-06 00:09 | disposition home or self-care (01) ==
PROVIDERS: Emergency Provider Emergency Medicine; PCP Nurse Practitioner Family
DX: R10.11 Right upper quadrant pain (principal); R11.2 Nausea with vomiting, unspecified
CPT/HCPCS: 74177; 80053; 82550; 82553; 83690; 84484; 84703; 85025; 85610; 96361; 96374; 96375; 99284; J0131; J1200; J7120; Q9967

== ENCOUNTER 2023-12-14 15:22 | Emergency (ER) | payer BC, SELFPAY ==
[2023-12-14 15:24] VITALS: BP 122/81; PULSE 52; RESP 16; TEMP 36.6; O2SAT 100; BMI 20.9
--- NOTE | 2023-12-14 15:42 | PC.NURSE ---
Dr. Stone at [facility] for pt eval
--- NOTE | 2023-12-14 15:44 | CT_ITS ---
PROCEDURE INFORMATION: Exam: CT Abdomen And Pelvis Without Contrast Exam date and time: 12/14/2023 3:59 PM Age: 28 years old Clinical indication: Abdominal pain; Prior surgery; Surgery date: 6+ months; Surgery type: , appendectomy, cholecystectomy, gastric sleeve; Additional info: L flank pain TECHNIQUE: Imaging protocol: Computed tomography of the abdomen and pelvis without contrast. Radiation optimization: All CT scans at this facility use at least one of these dose optimization techniques: automated exposure control; mA and/or kV adjustment per patient size (includes targeted exams where dose is matched to clinical indication); or iterative reconstruction. COMPARISON: CT ABDOMEN PELVIS W CON 10/05/2023 9:38 PM FINDINGS: Lungs: The visualized lung bases are clear. Pleural spaces: There are no pleural effusions. Heart: The visualized portions of the heart are unremarkable. Liver: There is a small region of focal fatty infiltration adjacent to the falciform ligament. There is mild prominence of the liver. Liver measures 19 cm in CC dimension. Evaluation of the liver is limited without contrast but the liver is otherwise within normal limits for this noncontrast study. Gallbladder and biliary ducts: There has been a cholecystectomy. Pancreas: Noncontrast images of the pancreas are within range of normal. Spleen: The spleen is normal. Adrenal glands: The adrenal glands are normal. Kidneys and ureters: Noncontrast images of the kidneys are within range of normal. Stomach and bowel: There has been a gastric stapling and bypass. The stomach is otherwise within range of normal. The duodenum appears normal. Unopacified loops of small bowel within range of normal. . The colon is normal. Appendix: Postoperative changes consistent with appendectomy. Intraperitoneal space: No evidence of intraperitoneal free air. There is no evidence of free intraperitoneal or pelvic fluid. Vasculature: No abdominal aortic aneurysm. Lymph nodes: There is no evidence of pathologic adenopathy. Urinary bladder: The bladder is decompressed. Reproductive: The uterus is normal. The ovaries are normal. Bones/joints: There is no evidence of acute fracture. Soft tissues: No significant soft tissue edema. Other findings: Evaluation is limited by the lack of intravenous and gastrointestinal contrast. IMPRESSION: 1. Stable postoperative changes involving the proximal stomach. 2. Mild stable prominence of the liver likely reflecting a Williams's segment, normal variation. 3. Areas of mild fatty hepatic infiltration.
[2023-12-14] MEDS: KETOROLAC 30MG/ML VIAL 15 MG IV (15:49)
[2023-12-14] MEDS: ACETAMINOPHEN 500MG TAB 1000 MG PO (15:49)
--- NOTE | 2023-12-14 15:49 | ED_ITS ---
Discharge Plan Disposition Patient Disposition: Home, Self-Care Condition: Good Prescriptions Prescriptions: New polyethylene glycol 3350 [Miralax] 17 gram/dose powder 17 g PO DAILY Qty: 510 0RF senna leaf extract 8.7 mg tablet,chewable 8.7 mg PO HSP PRN (Reason: constipation) Qty: 30 0RF phenazopyridine [Pyridium] 200 mg tablet 200 mg PO Q8H PRN (Reason: pain) Qty: 6 0RF ondansetron 4 mg tablet,disintegrating 4 mg PO Q8H PRN (Reason: nausea and vomiting) 4 Days Qty: 12 0RF cefdinir 300 mg capsule 300 mg PO BID 10 Days Qty: 20 0RF ketorolac 10 mg tablet 10 mg PO Q8H PRN (Reason: pain) 3 Days Qty: 12 0RF No Action multivitamin [Daily Multi-Vitamin] Tablet 1 tab PO DAILY vilazodone 20 mg tablet 20 mg PO DAILY acarbose 25 mg tablet 25 mg PO DAILY glucagon HCl [Glucagon (HCl) Emergency Kit] 1 mg recon soln 1 mg SQ Q20M PRN Rx Instructions: until target blood sugar attained azithromycin [Zithromax Z-Abdelrahman] 250 mg tablet See Rx Instructions PO .COMPLEX Qty: 6 0RF Rx Instructions: For 250 mg dose pack: take 500 mg today (day 1), then 250 mg for 4 days (days 2-5) PO calcium citrate 1,000 mg Tablet 1,200 mg PO DAILY cholecalciferol (vitamin D3) [Vitamin D3] 125 mcg (5,000 unit) Tablet 125 mcg PO DAILY mecobalamin (vitamin B12) [B12 Active] 1,000 mcg Tablet,Chewable 1,000 mcg PO DAILY ondansetron 4 mg tablet,disintegrating 4 mg PO Q6H PRN (Reason: nausea and vomiting) Qty: 10 0RF Referrals Follow up/Referrals: Fabián Dorantes APRN [Primary Care Provider] - See instructions Activity Restrictions/Add. Instructions Additional Instructions/Restrictions: You were evaluated in the ED. Your labs are reassuring. There is some blood in your urine, which could be because you are on your period. Your CT scan does not show evidence of kidney stones at this time. It does look like you are constipated, for which we are prescribing you a bowel regimen. We did send a urine culture which is pending, but we are treating you empirically with antibiotics given bacteria and white blood cells in your urine. Please follow up closely with your primary care provider for reassessment. Return to the ED for new or worsening symptoms. On your CT scan, the radiologist believes your liver is slightly enlarged, but they think this is a normal variation. Please have your primary care provider monitor this. Clinical Impressions Clinical Impression: Enlarged liver, Constipation, Left flank pain, UTI (urinary tract infection) Stand Alone Forms Stand Alone Forms: Work/School Release Instructions Patient Instructions: DI for Constipation, DI for Acute Abdominal Pain Print Language Print Language: Luxembour[place] Discharge ED Provider: Theresa Stone General Adult HPI General Chief complaint: Abdominal Pain Stated complaint: back and bladder pain, pain w/ urination Time Seen by Provider: 12/14/23 15:28 History of Present Illness HPI narrative: This patient is a 28-year-old female with a history of endometriosis, PCOS, prior gastric sleeve, cholecystectomy, appendectomy, and salpingectomy presenting to the emergency department for evaluation with concern for left flank pain. Patient reports that it started about 3 days ago. She states that the pain is intermittent and sharp. It feels similar to prior kidney stone. She stated she saw her PCP who did a urinalysis that was not infected, so they think she may have a kidney stone. They sent her here for further assessment. She denies any current fevers, vomiting, changes in bowel movements, or other concerns. She does report some nausea when the pain is severe. Pain is currently 6 out of 10. Related Data Home Medications ?Medication ?Instructions ?Recorded ?Confirmed calcium citrate 1,000 mg tablet 1,200 mg PO DAILY vitamin 04/25/22 10/09/23 cholecalciferol (vitamin D3) 125 125 mcg PO DAILY vitamin 04/25/22 10/09/23 mcg (5,000 unit) tablet (Vitamin D3) mecobalamin (vitamin B12) 1,000 1,000 mcg PO DAILY vitamin 04/25/22 10/09/23 mcg chewable tablet (B12 Active) multivitamin (Daily Multi-Vitamin 1 tab PO DAILY 03/08/23 10/09/23 tablet) acarbose 25 mg tablet 25 mg PO DAILY 10/09/23 10/09/23 glucagon HCl 1 mg solution for 1 mg SQ Q20M PRN 10/09/23 10/09/23 injection (Glucagon (HCl) Emergency Kit) vilazodone 20 mg tablet 20 mg PO DAILY 10/09/23 10/09/23 Previous Rx's ?Medication ?Instructions ?Recorded ondansetron 4 mg disintegrating 4 mg PO Q6H PRN nausea and 10/05/23 tablet vomiting #10 tabs azithromycin 250 mg tablet See Rx Instructions PO .COMPLEX #6 10/09/23 (Zithromax Z-Abdelrahman) tabs cefdinir 300 mg capsule 300 mg PO BID 10 days #20 caps 12/14/23 ketorolac 10 mg tablet 10 mg PO Q8H PRN pain 3 days #12 12/14/23 tabs ondansetron 4 mg disintegrating 4 mg PO Q8H PRN nausea and 12/14/23 tablet vomiting 4 days #12 tabs phenazopyridine 200 mg tablet 200 mg PO Q8H PRN pain 6 doses #6 12/14/23 (Pyridium) tabs polyethylene glycol 3350 17 17 g PO DAILY #510 grams 12/14/23 gram/dose oral powder (Miralax) senna leaf extract 8.7 mg chewable 8.7 mg PO HSP PRN constipation #30 12/14/23 tablet tabs Allergies Allergy/AdvReac Type Severity Reaction Status Date / Time buspirone [From BuSpar] Allergy Hallucinati Verified 10/09/23 15:05 ng hydromorphone [From Dilaudid] Allergy Hallucinati Verified 10/09/23 15:05 ng promethazine [From Phenergan] Allergy Vomiting Verified 10/09/23 15:05 PFSH PFSH Disclaimer: The information contained in this section may have been updated after the patient was seen, as this information can be updated by other users. Medical History Lymphadenopathy of right cervical region Lymphadenopathy Abnormal uterine bleeding (AUB) Pelvic pain Endometriosis Migraine Surgical History H/O gastric sleeve H/O oophorectomy H/O bilateral salpingectomy Hx of cholecystectomy Hx of appendectomy H/O section Hx of tonsillectomy Family History Other Diabetes Hypertension Stroke Social History Smoking Status: Never smoker alcohol intake: former substance use type: denies use current occupational status: employed Travel in the last 8 weeks: None Other Medical History Have you received the Flu Vaccine for this season: No Have you received the Pneumonia Vaccine: No ROS Obtained: Yes All systems reviewed & no additional complaints except as documented Physical Exam General General appearance: alert and in no apparent distress Head Head exam: atraumatic and normocephalic Eye Eye exam: Present normal appearance, PERRL and EOMI ENT ENT exam: Present normal exam, normal oropharynx, mucous membranes moist and normal external ear exam Neck Neck exam: Present normal inspection, full ROM and trachea midline; Absent tenderness Chest Chest inspection: Present normal inspection and symmetric chest wall rise; Absent tenderness Respiratory Respiratory exam: Present normal lung sounds bilaterally; Absent respiratory distress, wheezes, stridor or accessory muscle use Cardiovascular Cardiovascular exam: Present regular rate and normal rhythm Abdominal Exam Abdominal exam: Present soft; Absent distention, tenderness or guarding Extremities Exam Extremities exam: Present normal inspection, full ROM and normal capillary refill; Absent tenderness or edema Back Exam Back exam: Present normal inspection and full ROM; Absent tenderness Neurological Exam Neurological exam: Present alert, oriented X3, CN II-XII intact and normal gait; Absent motor sensory deficit Psychiatric Psychiatric exam: Present normal affect and normal mood Skin Skin exam: Present warm and dry Medical Decision Making Medical Records Medical records reviewed: Yes I reviewed the patient's medical records. Screening: Per USPSTF and CDC recommendations, given the prevalence of disease in our region, it is our hospital?s policy to screen for HIV and viral Hepatitis for all patients aged 18 and over and those with ongoing risk factors. Damian Inquiry Pt receiving controlled substance: No Vital Signs: 12/14/23 15:24 12/14/23 16:00 12/14/23 17:55 Temperature 97.8 F 97.9 F Temperature Source Oral Pulse Rate 51 L 59 L Pulse Rate [Left Radial] 52 L Respiratory Rate 16 16 Blood Pressure 119/74 Blood Pressure [Right Arm] 122/81 Blood Pressure Mean [Right Arm] 94 Blood Pressure Source [Right Arm] Automatic Cuff Blood Pressure Position [Right Arm] Sitting 02 Sat by Pulse Oximetry 100 97 Oxygen Delivery Method Room Air Room Air Lab Data Lab results reviewed: Yes I reviewed the patient's lab results. Lab Results 12/14/23 15:32: Urine Color Yellow, Urine Appearance Clear, Urine pH 5.5, Ur Specific [place] >= 1.030, Urine Protein Negative, Urine Glucose (UA) Negative, Urine Ketones Trace, Urine Blood 2+ A, Urine Nitrate Negative, Urine Bilirubin Negative, Urine Urobilinogen 1.0, Ur Leukocyte Esterase Negative, Urine RBC 10- 20, Urine WBC 10-20, Ur Squamous Epith Cells 5-10, Urine Bacteria 2+, Urine Mucus 4+ 12/14/23 15:38: WBC 3.7 L, RBC 4.19 L, Hgb 12.6, Hct 36.9 L, MCV 88.0, MCH 30.1, MCHC 34.2, RDW 13.0, Plt Count 196, MPV 7.8, Neut % (Auto) 59.0, Lymph % (Auto) 34.8, [place] % (Auto) 4.9, Eos % (Auto) 0.6, Baso % (Auto) 0.8, Neut # (Auto) 2.2, Lymph # (Auto) 1.3, [place] # (Auto) 0.2, Eos # (Auto) 0.0, Baso # (Auto) 0.0, Sodium 141, Potassium 3.5, Chloride 110 H, Carbon Dioxide 25, Anion Gap 9.5, BUN 14, Creatinine 0.70, Estimated Creat Clear 131, Estimated GFR 101, Est GFR ( Amer) 122, Glucose 83, Calcium 9.4, Total Bilirubin 1.2, AST 28, ALT 23, Alkaline Phosphatase 53, Total Protein 6.7, Albumin 4.5, Globulin 2.2, A lbumin/Globulin Ratio 2.0 H, Lipase 58, HIV 1&2 Antibody Rapid Nonreactive 12/14/23 15:38 12/14/23 15:38 Orders (Tests/Meds): ED MEDICATIONS Discontinued Medications Generic Name Dose Route Start Last Admin Trade Name Jhonyq PRN Reason Stop Dose Admin Acetaminophen 1,000 mg 12/14/23 15:44 12/14/23 15:49 Acetaminophen 500mg Tab PO 12/14/23 15:45 1,000 mg ONCE ONE Administration Ketorolac Tromethamine 15 mg 12/14/23 15:44 12/14/23 15:49 Ketorolac 30mg/Ml Vial IV 12/14/23 15:45 15 mg ONCE ONE Administration Ondansetron HCl 4 mg 12/14/23 15:44 12/14/23 15:50 Ondansetron 4mg/2ml Vial IV 12/14/23 15:45 4 mg ONCE ONE Administration ORDERS Category Date Time Status CT abdomen pelvis wo con Stat Cat Scan 12/14/23 15:44 Completed Complete Blood Count Auto Diff Stat Lab 12/14/23 15:38 Completed Comprehensive Metabolic Panel Stat Lab 12/14/23 15:38 Completed HIV (1&2) Antibody Rapid Stat Lab 12/14/23 15:38 Completed Hep C Ab with Reflex to RNA Stat Lab 12/14/23 15:38 Received Lipase Stat Lab 12/14/23 15:38 Completed UA [Urinalysis and Microscopic] Stat Lab 12/14/23 15:32 Completed Urine Culture Stat Micro 12/14/23 15:32 Received Medical Decision Narrative: In summary, this patient is a 28-year-old female presenting to the Emergency Department for evaluation of left flank pain. Differential diagnoses considered include but are not limited to ureterolithiasis, pyelonephritis, colitis, gastritis, pancreatitis. Ruling out the most morbid conditions drove assessment. It should be noted patient's history includes endometriosis and PCOS which may or may not be at goal therapy. This complicates all aspects of care by increasing patient's risk for morbidity. On exam, the patient is lying in bed in no acute distress. Abdominal exam is benign. Vitals are reassuring on cardiac telemetry. Workup included CBC, CMP, lipase, urinalysis, CT abdomen pelvis without IV contrast. She was given IV Toradol, oral Tylenol, and IV Zofran for symptomatic improvement of pain.. I independently interpreted CT scan prior to the radiologist read and noted large stool burden but no obvious hydronephrosis or obstructive uropathy. Please see their read for final interpretation. Labs were obtained that demonstrated no significant leukocytosis. Patient does have slightly contaminated urine but she does have urinary pain with evidence of white blood cells, red blood cells, and bacteria on urine. Given this, will treat empirically as pyelonephritis with cephalosporin urine culture was sent and is pending.. Ultimately, patient is stable on reassessment with improved symptoms and feels like she is ready to go home. Will discharge with prescriptions for MiraLAX, senna, cefdinir, Toradol, and Pyridium for symptomatic improvement. She is also given prescription for Zofran in case of nausea. She was given instructions for close follow-up with primary care for reassessment, including for monitoring of liver enlargement on CT. She was given strict return precautions. She was discharged after all questions were Critical Care Critical Care Time Critical Care Time: No
[2023-12-14 15:50] LABS: Basophils % 0.8 % (0.1-2.0); Eosinophils % 0.6 % (0.1-12.0); Hematocrit 36.9 % (37.0-47.0); Hemoglobin 12.6 g/dL (12.2-16.2); Lymphocytes # 1.3 K/mm3 (0.7-4.5); Lymphocytes % 34.8 % (10-50); Mean Corpuscular HGB Conc 34.2 g/dL (31.8-35.4); Mean Corpuscular Hemoglobin 30.1 pg (27.0-31.2); Mean Platelet Volume 7.8 fl (7.4-10.4); Monocytes # 0.2 K/mm3 (0.1-1.0); Monocytes % 4.9 % (1.7-9.3); Neutrophils # 2.2 K/mm3 (1.8-7.8); Platelet Count 196 K/mm3 (142-424); Red Blood Count 4.19 M/mm3 (4.20-5.40); White Blood Count 3.7 K/mm3 (4.8-10.8)
[2023-12-14] MEDS: ONDANSETRON 4MG/2ML VIAL 4 MG IV (15:50)
[2023-12-14 15:51] LABS: Microscopic, Urine URINE MICROSCOPIC (MICROSCOPIC)
[2023-12-14 16:00] VITALS: PULSE 51; O2SAT 97
[2023-12-14 16:03] LABS: Alanine Aminotransferase 23 U/L (12-78); Albumin Level 4.5 g/dl (3.5-5.0); Alkaline Phosphatase 53 U/L (38-126); Anion Gap 9.5 mEq/L (5-15); Aspartate Amino Transferase 28 U/L (14-36); Bilirubin,Total 1.2 mg/dl (0.2-1.3); Blood Urea Nitrogen 14 mg/dl (7-17); Calcium 9.4 mg/dl (8.4-10.2); Carbon Dioxide 25 mmol/L (22.0-30.0); Chloride 110 mmol/L (98-107); Creatinine Clearance Estimated 131 mL/min (50-200); Estimated Glomerular Filt Rate 101 ml/min (>60); GFR (African American) 122 ML/MIN (>60); Globulin 2.2 g/dL (1.3-3.2); Glucose 83 mg/dl (74-100); Lipase 58 U/L (23-300); Potassium 3.5 mmoL/L (3.5-5.1); Sodium 141 mmol/L (136-145); Total Protein,Serum 6.7 g/dl (6.3-8.2)
[2023-12-14 16:14] LABS: Appearance,Urine CLEAR (Clear); Bilirubin,Urine Negative (Negative); Blood, Urine 2+ (Negative); Color,Urine YELLOW (Yellow); Glucose,Urine (UA) Negative (Negative); Ketones,Urine TRACE (Negative); Leukocyte Esterase,Urine Negative (Negative); Nitrate,Urine Negative (Negative); PH,Urine 5.5 (5.0-8.5); Protein,Urine Negative (Negative); Specific Gravity, Urine >= 1.030 (1.005-1.030)
[2023-12-14 16:37] LABS: Bacteria,Urine 2+ /lpf; Mucus,Urine 4+ /lpf
[2023-12-14 16:40] LABS: HIV (1&2) Antibody Rapid NONREACTIVE (NONREACTIVE)
[2023-12-14 17:55] VITALS: BP 119/74; PULSE 59; RESP 16; TEMP 36.6
[2023-12-15 08:51] LABS: HCV Ab Non Reactive (Non Reactive)
== END 2023-12-14 17:57 | disposition home or self-care (01) ==
PROVIDERS: Emergency Provider Emergency Medicine; PCP Nurse Practitioner Family
DX: N39.0 Urinary tract infection, site not specified (principal); R16.0 Hepatomegaly, not elsewhere classified; K59.00 Constipation, unspecified; R10.9 Unspecified abdominal pain; M54.9 Dorsalgia, unspecified; R30.9 Painful micturition, unspecified
CPT/HCPCS: 74176; 80053; 81001; 83690; 85025; 86803; 87086; 87389; 96374; 96375; 99284; J1885; J2405

== ENCOUNTER 2024-03-11 11:22 | Emergency (ER) | payer MEDICAID, SELFPAY ==
[2024-03-11 11:23] VITALS: BP 132/92; PULSE 98; RESP 16; TEMP 36.9; O2SAT 100; BMI 21.6
--- NOTE | 2024-03-11 11:39 | ECG_ITS ---
APPROVED REPORT Exam: Resting ECG HR:78 bpm ECG Measurements Heart Rate 78 AXES WY 168 P 73 QRSd 91 QRS 89 QT 374 T 66 QTc 408 Conclusion SINUS RHYTHM NORMAL ECG Electronically signed by : ЕКАТЕРИНА GARRISON, 03/11/2024 15:59:46
[2024-03-11 12:00] VITALS: BP 107/72; PULSE 75; RESP 16; O2SAT 99
--- NOTE | 2024-03-11 12:02 | ED_ITS ---
<Statement entered by Theresa Stone DO - 03/11/24 16:47> I was consulted by the KATHRYN, and we discussed the complexity of the problems being addressed. I approved the treatment and management plan for this patient's care in the emergency department, thus performing a substantive portion of the medical decision making. Theresa Stone DO Discharge Plan Disposition Patient Disposition: Home, Self-Care Condition: Good Prescriptions Prescriptions: No Action multivitamin [Daily Multi-Vitamin] Tablet 1 tab PO DAILY vilazodone 20 mg tablet 20 mg PO DAILY acarbose 25 mg tablet 25 mg PO DAILY glucagon HCl [Glucagon (HCl) Emergency Kit] 1 mg recon soln 1 mg SQ Q20M PRN Rx Instructions: until target blood sugar attained azithromycin [Zithromax Z-Abdelrahman] 250 mg tablet See Rx Instructions PO .COMPLEX Qty: 6 0RF Rx Instructions: For 250 mg dose pack: take 500 mg today (day 1), then 250 mg for 4 days (days 2-5) PO calcium citrate 1,000 mg Tablet 1,200 mg PO DAILY cholecalciferol (vitamin D3) [Vitamin D3] 125 mcg (5,000 unit) Tablet 125 mcg PO DAILY mecobalamin (vitamin B12) [B12 Active] 1,000 mcg Tablet,Chewable 1,000 mcg PO DAILY polyethylene glycol 3350 [Miralax] 17 gram/dose powder 17 g PO DAILY Qty: 510 0RF senna leaf extract 8.7 mg tablet,chewable 8.7 mg PO HSP PRN (Reason: constipation) Qty: 30 0RF phenazopyridine [Pyridium] 200 mg tablet 200 mg PO Q8H PRN (Reason: pain) Qty: 6 0RF ondansetron 4 mg tablet,disintegrating 4 mg PO Q8H PRN (Reason: nausea and vomiting) 4 Days Qty: 12 0RF cefdinir 300 mg capsule 300 mg PO BID 10 Days Qty: 20 0RF ketorolac 10 mg tablet 10 mg PO Q8H PRN (Reason: pain) 3 Days Qty: 12 0RF ondansetron 4 mg tablet,disintegrating 4 mg PO Q6H PRN (Reason: nausea and vomiting) Qty: 10 0RF Referrals Follow up/Referrals: Fabián Dorantes APRN [Primary Care Provider] - See instructions Activity Restrictions/Add. Instructions Additional Instructions/Restrictions: As we discussed you need to follow-up with your Gonda for further workup. If you have any new or worsening signs or symptoms follow-up sooner with your PCP or return to the ER as needed. As we also discussed I highly recommend checking your blood sugar before giving yourself glucagon.. Clinical Impressions Clinical Impression: Hypomagnesemia Convulsions Qualifiers: Convulsion type: unspecified Qualified Code(s): R56.9 - Unspecified convulsions Print Language Print Language: Divehi Discharge ED Provider: Theresa Stone General Adult HPI <GRIFFIN Campoverde - Last Filed: 03/11/24 20:47> General Chief complaint: Weakness Stated complaint: seizure Time Seen by Provider: 03/11/24 11:52 Mode of Arrival: Wheelchair Source of Information: Patient and Significant Other Limitations: No Limitations Description of Symptoms (Recalled from ER Triage Doc. by RN): PT BROUGHT BY S.O. REPORTS HE WALKED IN AND SHE WAS STANDING IN THE DOORWAY STARRING, STATES HE CARRIED HER TO BED AND SHE BEGAN SHAKING ALL OVER PT C/O BILATERAL HAND TINGLING AND MOUTH TINGLING. REPORTS PAIN TO NECK AND FOREHEAD. REPORTS A FEW DAYS OF WEAKNESS PRIOR TO TODAY. STATES SHE FEELS FOGGY S.O GAVE PT HER RESCUSE DOSE OF GLUCOSE History of Present Illness HPI narrative: Patient presents for evaluation of convulsions. Patient has no recollection of the events other than waking up this morning and feeling weird . Significant other walked into the bedroom saw her standing staring off into space and was unresponsive. She then began having convulsive like movements. She does not have a known seizure disorder. This lasted 2 to 3 minutes and was also witnessed by his sister. Patient was amnestic of these events. They states that she seemed to wake up and was able to walk to the car to come to the hospital. Patient does have a history of previous bariatric surgery with a gastric sleeve. She has periods of reported hypoglycemia for which she has a glucagon pen which was given by her significant other. Currently she denies any chest pain shortness of breath fever chills hemoptysis hematochezia melena nausea vomiting diarrhea. She denies any focal neurologic deficits. She reports feeling well otherwise prior to the events. Related Data Home Medications ?Medication ?Instructions ?Recorded ?Confirmed calcium citrate 1,000 mg tablet 1,200 mg PO DAILY vitamin 04/25/22 10/09/23 cholecalciferol (vitamin D3) 125 125 mcg PO DAILY vitamin 04/25/22 10/09/23 mcg (5,000 unit) tablet (Vitamin D3) mecobalamin (vitamin B12) 1,000 1,000 mcg PO DAILY vitamin 04/25/22 10/09/23 mcg chewable tablet (B12 Active) multivitamin (Daily Multi-Vitamin 1 tab PO DAILY 03/08/23 10/09/23 tablet) acarbose 25 mg tablet 25 mg PO DAILY 10/09/23 10/09/23 glucagon HCl 1 mg solution for 1 mg SQ Q20M PRN 10/09/23 10/09/23 injection (Glucagon (HCl) Emergency Kit) vilazodone 20 mg tablet 20 mg PO DAILY 10/09/23 10/09/23 Previous Rx's ?Medication ?Instructions ?Recorded ondansetron 4 mg disintegrating 4 mg PO Q6H PRN nausea and 10/05/23 tablet vomiting #10 tabs azithromycin 250 mg tablet See Rx Instructions PO .COMPLEX #6 10/09/23 (Zithromax Z-Abdelrahman) tabs cefdinir 300 mg capsule 300 mg PO BID 10 days #20 caps 12/14/23 ketorolac 10 mg tablet 10 mg PO Q8H PRN pain 3 days #12 12/14/23 tabs ondansetron 4 mg disintegrating 4 mg PO Q8H PRN nausea and 12/14/23 tablet vomiting 4 days #12 tabs phenazopyridine 200 mg tablet 200 mg PO Q8H PRN pain 6 doses #6 12/14/23 (Pyridium) tabs polyethylene glycol 3350 17 17 g PO DAILY #510 grams 12/14/23 gram/dose oral powder (Miralax) senna leaf extract 8.7 mg chewable 8.7 mg PO HSP PRN constipation #30 12/14/23 tablet tabs Allergies Allergy/AdvReac Type Severity Reaction Status Date / Time buspirone (From BuSpar) Allergy Hallucinati Verified 10/09/23 15:05 ng hydromorphone (From Dilaudid) Allergy Hallucinati Verified 10/09/23 15:05 ng promethazine (From Phenergan) Allergy Vomiting Verified 10/09/23 15:05 PFSH <GRIFFIN Campoverde - Last Filed: 03/11/24 20:47> [facility] Disclaimer: The information contained in this section may have been updated after the patient was seen, as this information can be updated by other users. Medical History Lymphadenopathy of right cervical region Lymphadenopathy Abnormal uterine bleeding (AUB) Pelvic pain Endometriosis Migraine Surgical History H/O gastric sleeve H/O oophorectomy H/O bilateral salpingectomy Hx of cholecystectomy Hx of appendectomy H/O section Hx of tonsillectomy Family History Other Diabetes Hypertension Stroke Social History Smoking Status: Never smoker alcohol intake: former substance use type: denies use current occupational status: employed Travel in the last 8 weeks: None Have you lived/traveled outside [place] in past 30 days?: No Contact w/someone who lives/traveled outside US past 30 days?: No Exposure to someone with infectious disease in past 14 days?: No Do you have a fever (greater than 100.4 F or 38 C)?: No Have you tested positive for COVID-19: No Exposed to someone with COVID-19 in past 14 days?: No Do you have a sore throat?: No Do you have a cough?: No Do you have any weakness?: No Do you have any diarrhea?: No Are you experiencing any unusual bleeding?: No Do you have any muscle aches/pain?: No Do you have any abdominal pain?: No Are you experiencing loss of taste or smell?: No Other Medical History Have you received the Flu Vaccine for this season: No Have you received the Pneumonia Vaccine: No <GRIFFIN Campoverde - Last Filed: 03/11/24 20:47> ROS Obtained: Yes Systems reviewed as appropriate & no additional complaints except as documented Physical Exam <GRIFFIN Campoverde - Last Filed: 03/11/24 20:47> General General appearance: alert and in no apparent distress Respiratory Respiratory exam: Present normal lung sounds bilaterally Cardiovascular Cardiovascular exam: Present regular rate Neurological Exam Neurological exam: Present alert, oriented X3, CN II-XII intact and normal gait; Absent motor sensory deficit Medical Decision Making <GRIFFIN Campoverde - Last Filed: 03/11/24 20:47> Medical Records Medical records reviewed: Yes I reviewed the patient's medical records. Screening: Per USPSTF and CDC recommendations, given the prevalence of disease in our region, it is our hospital?s policy to screen for HIV and viral Hepatitis for all patients aged 18 and over and those with ongoing risk factors. Damian Inquiry Pt receiving controlled substance: No Vital Signs: 03/11/24 11:23 03/11/24 12:00 03/11/24 12:30 Temperature 98.4 F Temperature Source Oral Pulse Rate 75 78 Pulse Rate [Apical] 98 H Respiratory Rate 16 16 14 Blood Pressure 107/72 L 95/66 L Blood Pressure [Left Arm] 132/92 H Blood Pressure Mean [Left Arm] 105 Blood Pressure Source [Left Arm] Automatic Cuff Blood Pressure Position [Left Arm] Sitting 02 Sat by Pulse Oximetry 100 99 100 Oxygen Delivery Method Room Air Room Air Room Air 03/11/24 14:13 Temperature 98.2 F Temperature Source Oral Pulse Rate 80 Pulse Rate [Apical] Respiratory Rate 13 Blood Pressure 120/80 Blood Pressure [Left Arm] Blood Pressure Mean [Left Arm] Blood Pressure Source [Left Arm] Blood Pressure Position [Left Arm] 02 Sat by Pulse Oximetry Oxygen Delivery Method Room Air Lab Data Lab results reviewed: Yes I reviewed the patient's lab results. Lab Results 03/11/24 12:45: Urine Color Yellow, Urine Appearance Clear, Urine pH 7.0, Ur Specific [place] 1.020, Urine Protein Trace, Urine Glucose (UA) Trace, Urine Ketones Negative, Urine Blood Negative, Urine Nitrate Negative, Urine Bilirubin 1+ A, Urine Urobilinogen 4.0, Ur Leukocyte Esterase Negative, Urine RBC None, Urine WBC Occasional, Ur Squamous Epith Cells 5-10, Amorphous Sediment Trace, Urine Bacteria Trace, Urine Opiates Screen Negative, Urine Methadone Screen Negative, Ur Barbituates Screen Negative, Ur Phencyclidine Scrn Negative, Ur Amphetamines Screen Negative, U Benzodiazepines Scrn Negative, Urine Cocaine Screen Negative, U Marijuana (THC) Screen Positive H 03/11/24 : WBC 5.3, RBC 4.50, Hgb 13.1, Hct 39.0, MCV 86.7, MCH 29.1, MCHC 33.6, RDW 11.8, Plt Count 201, MPV 10.3, Neut % (Auto) 75.5, Lymph % (Auto) 18.8, [place] % (Auto) 4.7, Eos % (Auto) 0.4, Baso % (Auto) 0.4, Neut # (Auto) 4.0, Lymph # (Auto) 1.0, [place] # (Auto) 0.3, Eos # (Auto) 0.0, Baso # (Auto) 0.0, Sodium 137, Potassium 3.6, Chloride 104, Carbon Dioxide 27, Anion Gap 9.6, BUN 12, Creatinine 0.80, Estimated Creat Clear 118, Estimated GFR 87, Est GFR ( Amer) 105, Glucose 197 H, Calcium 9.7, Phosphorus 2.9, Magnesium 1.6, Total Bilirubin 1.6 H, AST 33, ALT 25, Alkaline Phosphatase 61, Total Creatine Kinase 50, Total Protein 7.4, Albumin 4.7, Globulin 2.7, Albumin/Globulin Ratio 1.7, TSH 1.64, Free T4 Index 2.6 L, Thyroxine (T4) 8.2, T3 Uptake 32, HCV Ab JAKE w/Rflx PCR Qn Negative, HIV Ag/Ab Combo Qual Negative 03/11/24 Unknown 03/11/24 Unknown Orders (Tests/Meds): ED MEDICATIONS Discontinued Medications Generic Name Dose Route Start Last Admin Trade Name Freq PRN Reason Stop Dose Admin Acetaminophen 1,000 mg 03/11/24 12:55 03/11/24 13:08 Acetaminophen 1,000mg/100ml Vial IV 03/11/24 12:56 1,000 mg ONCE ONE Administration Magnesium Sulfate 2 gm in 50 mls @ 50 mls/hr 03/11/24 12:56 03/11/24 13:08 Magnesium Sulfate 2gm/50ml Premix IV 03/11/24 13:55 50 mls/hr ONCE ONE Administration Magnesium Oxide 800 mg 03/11/24 12:56 03/11/24 13:08 Magnesium Oxide 400mg Tablet PO 03/11/24 12:57 800 mg ONCE ONE Administration Ondansetron HCl 4 mg 03/11/24 12:13 03/11/24 12:31 Ondansetron 4mg/2ml Vial IV 03/11/24 12:14 4 mg ONCE ONE Administration ORDERS Category Date Time Status CT head/brain wo con Stat Cat Scan 03/11/24 12:13 Completed CBC w/Auto Diff [Complete Blood Count Auto Diff] Stat Lab 03/11/24 Completed CK [Creatine Kinase] Stat Lab 03/11/24 Completed CMP [Comprehensive Metabolic Panel] Stat Lab 03/11/24 Completed HIV Combo Stat Lab 03/11/24 Completed Hepatitis C Ab Qual. W/ RFX Stat Lab 03/11/24 Completed Magnesium Stat Lab 03/11/24 Completed Phosphorous Stat Lab 03/11/24 Completed Thyroid Panel Stat Lab 03/11/24 Completed UA [Urinalysis and Microscopic] Stat Lab 03/11/24 12:45 Completed UDS [Drug Screen,Urine] Stat Lab 03/11/24 12:45 Completed Medical Decision Narrative: In summary patient is a 28-year-old female who presents to the emergency department for evaluation of convulsions. Patient is initially hemodynamically stable with a blood pressure 132/92 pulse 98 normal sinus rhythm on bedside monitor breathing 16 times a minute satting at 100% on room air upon arrival, and afebrile at 98.4. Physical exam is remarkable for a well-nourished well- developed 28-year-old female who is otherwise in no acute distress. Carlin Coma Score 15 patient is awake alert and oriented person place and circumstance currently but is amnestic of events that occurred prior to arrival. NIH stroke score 0 she has no focal neurologic deficits no nuchal rigidity or meningeal signs. Breath sounds are clear and equal bilaterally to the bases heart sounds are normal abdominal exam is benign with no tenderness rebound guarding rigidity it soft and tender and normal bowel sounds.. Differential diagnosis includes hypoglycemia versus seizure versus electrolyte abnormality versus infection. Initial workup will be conducted with hematologic labs CT scan of the head urinalysis urine drug screen twelve-lead EKG. Initial interventions include continuous cardiac monitoring pulse oximetry and Tylenol for now. Initial workup reviewed by me assuring as patient's electrolytes are normal with a slightly low magnesium which has been repleted IV, serum glucose is currently 197 but no acidosis or anion gap CK is 50 suggestive of not tonic-clonic muscular activity TSH is 164 urinalysis is bland urine drug screen is positive for marijuana patient has had 1 ovary and both tubes removed thus she is not . Upon repeat evaluation remains neurologically intact with no focal neurologic deficits. Given this we have essentially ruled out any serious or life-threatening condition or reversible cause of her symptoms. Suggestion remains that this still could possibly be hypoglycemia although the diagnosis is uncertain. Patient does not normally check her blood sugar before giving herself glucagon she she has no idea what her blood sugar has been running. Thus I have referred the patient back to her PCP for reevaluation within 48 hours. I have made the recommendation that she obtain some sort of glucose monitoring to know what her blood sugar is doing over time. I have also recommended that she have her PCP refer her to neurology for further workup. Thus patient is appropriate for discharge with close follow-up with her PCP for ongoing management and workup. <Theresa Stone, DO - Last Filed: 03/11/24 13:24> Vital Signs: 03/11/24 11:23 03/11/24 12:00 03/11/24 12:30 Temperature 98.4 F Temperature Source Oral Pulse Rate 75 78 Pulse Rate [Apical] 98 H Respiratory Rate 16 16 14 Blood Pressure 107/72 L 95/66 L Blood Pressure [Left Arm] 132/92 H Blood Pressure Mean [Left Arm] 105 Blood Pressure Source [Left Arm] Automatic Cuff Blood Pressure Position [Left Arm] Sitting 02 Sat by Pulse Oximetry 100 99 100 Oxygen Delivery Method Room Air Room Air Room Air 03/11/24 14:13 Temperature 98.2 F Temperature Source Oral Pulse Rate 80 Pulse Rate [Apical] Respiratory Rate 13 Blood Pressure 120/80 Blood Pressure [Left Arm] Blood Pressure Mean [Left Arm] Blood Pressure Source [Left Arm] Blood Pressure Position [Left Arm] 02 Sat by Pulse Oximetry Oxygen Delivery Method Room Air Lab Data Lab Results 03/11/24 12:45: Urine Color Yellow, Urine Appearance Clear, Urine pH 7.0, Ur Specific [place] 1.020, Urine Protein Trace, Urine Glucose (UA) Trace, Urine Ketones Negative, Urine Blood Negative, Urine Nitrate Negative, Urine Bilirubin 1+ A, Urine Urobilinogen 4.0, Ur Leukocyte Esterase Negative, Urine RBC None, Urine WBC Occasional, Ur Squamous Epith Cells 5-10, Amorphous Sediment Trace, Urine Bacteria Trace, Urine Opiates Screen Negative, Urine Methadone Screen Negative, Ur Barbituates Screen Negative, Ur Phencyclidine Scrn Negative, Ur Amphetamines Screen Negative, U Benzodiazepines Scrn Negative, Urine Cocaine Screen Negative, U Marijuana (THC) Screen Positive H 03/11/24 : WBC 5.3, RBC 4.50, Hgb 13.1, Hct 39.0, MCV 86.7, MCH 29.1, MCHC 33.6, RDW 11.8, Plt Count 201, MPV 10.3, Neut % (Auto) 75.5, Lymph % (Auto) 18.8, [place] % (Auto) 4.7, Eos % (Auto) 0.4, Baso % (Auto) 0.4, Neut # (Auto) 4.0, Lymph # (Auto) 1.0, [place] # (Auto) 0.3, Eos # (Auto) 0.0, Baso # (Auto) 0.0, Sodium 137, Potassium 3.6, Chloride 104, Carbon Dioxide 27, Anion Gap 9.6, BUN 12, Creatinine 0.80, Estimated Creat Clear 118, Estimated GFR 87, Est GFR ( Amer) 105, Glucose 197 H, Calcium 9.7, Phosphorus 2.9, Magnesium 1.6, Total Bilirubin 1.6 H, AST 33, ALT 25, Alkaline Phosphatase 61, Total Creatine Kinase 50, Total Protein 7.4, Albumin 4.7, Globulin 2.7, Albumin/Globulin Ratio 1.7, TSH 1.64, Free T4 Index 2.6 L, Thyroxine (T4) 8.2, T3 Uptake 32, HCV Ab JAKE w/Rflx PCR Qn Negative, HIV Ag/Ab Combo Qual Negative Orders (Tests/Meds): ED MEDICATIONS Discontinued Medications Generic Name Dose Route Start Last Admin Trade Name Freq PRN Reason Stop Dose Admin Acetaminophen 1,000 mg 03/11/24 12:55 03/11/24 13:08 Acetaminophen 1,000mg/100ml Vial IV 03/11/24 12:56 1,000 mg ONCE ONE Administration Magnesium Sulfate 2 gm in 50 mls @ 50 mls/hr 03/11/24 12:56 03/11/24 13:08 Magnesium Sulfate 2gm/50ml Premix IV 03/11/24 13:55 50 mls/hr ONCE ONE Administration Magnesium Oxide 800 mg 03/11/24 12:56 03/11/24 13:08 Magnesium Oxide 400mg Tablet PO 03/11/24 12:57 800 mg ONCE ONE Administration Ondansetron HCl 4 mg 03/11/24 12:13 03/11/24 12:31 Ondansetron 4mg/2ml Vial IV 03/11/24 12:14 4 mg ONCE ONE Administration ORDERS Category Date Time Status CT head/brain wo con Stat Cat Scan 03/11/24 12:13 Completed CBC w/Auto Diff [Complete Blood Count Auto Diff] Stat Lab 03/11/24 Completed CK [Creatine Kinase] Stat Lab 03/11/24 Completed CMP [Comprehensive Metabolic Panel] Stat Lab 03/11/24 Completed HIV Combo Stat Lab 03/11/24 Completed Hepatitis C Ab Qual. W/ RFX Stat Lab 03/11/24 Completed Magnesium Stat Lab 03/11/24 Completed Phosphorous Stat Lab 03/11/24 Completed Thyroid Panel Stat Lab 03/11/24 Completed UA [Urinalysis and Microscopic] Stat Lab 03/11/24 12:45 Completed UDS [Drug Screen,Urine] Stat Lab 03/11/24 12:45 Completed ECG Data Tracing #1: I reviewed this ECG and interpreted as documented below: Normal sinus rhythm with a ventricular rate of [address] changes concerning for ischemia. Some motion artifact noted in V6. Normal axis and intervals. ECG initial impression date: 03/11/24 ECG initial impression time: 11:43 Critical Care <GRIFFIN Campoverde - Last Filed: 03/11/24 20:47> Critical Care Time Critical Care Time: No
--- NOTE | 2024-03-11 12:13 | CT_ITS ---
PROCEDURE INFORMATION: Exam: CT Head Without Contrast Exam date and time: 03/11/2024 12:35 PM Age: 28 years old Clinical indication: Other: Seizure TECHNIQUE: Imaging protocol: Computed tomography of the head without contrast. Radiation optimization: All CT scans at this facility use at least one of these dose optimization techniques: automated exposure control; mA and/or kV adjustment per patient size (includes targeted exams where dose is matched to clinical indication); or iterative reconstruction. COMPARISON: US SOFT TISSUE HEAD AND NECK 09/17/2023 3:18 PM FINDINGS: Brain: No acute intracranial hemorrhage, cerebral edema, or midline shift. Cerebral ventricles: No hydrocephalus. Paranasal sinuses: There is no acute sinusitis. Mastoid air cells: Visualized mastoid air cells are well aerated. Orbital cavities: The visualized orbits appear unremarkable. Bones: Unremarkable. No acute fracture. Soft tissues: Unremarkable. IMPRESSION: No acute intracranial abnormality.
[2024-03-11 12:23] LABS: Albumin Level 4.7 g/dl (3.5-5.0); Chloride 104 mmol/L (98-107); Potassium 3.6 mmoL/L (3.5-5.1); Sodium 137 mmol/L (136-145)
[2024-03-11 12:24] LABS: Basophils % 0.4 % (0.1-2.0); Eosinophils % 0.4 % (0.1-12.0); Hemoglobin 13.1 g/dL (12.2-16.2); Lymphocytes % 18.8 % (10-50); Mean Corpuscular HGB Conc 33.6 g/dL (31.8-35.4); Mean Corpuscular Hemoglobin 29.1 pg (27.0-31.2); Mean Corpuscular Volume 86.7 fl (81-99); Mean Platelet Volume 10.3 fl (7.4-10.4); Monocytes # 0.3 K/mm3 (0.1-1.0); Monocytes % 4.7 % (1.7-9.3); Neutrophils % 75.5 % (37.0-80.0); Platelet Count 201 K/mm3 (142-424); Red Cell Distribution Width 11.8 % (11.5-17.5); White Blood Count 5.3 K/mm3 (4.8-10.8)
[2024-03-11 12:26] LABS: Alanine Aminotransferase 25 U/L (12-78); Albumin/Globulin Ratio 1.7 (1.1-1.8); Alkaline Phosphatase 61 U/L (38-126); Anion Gap 9.6 mEq/L (5-15); Aspartate Amino Transferase 33 U/L (14-36); Bilirubin,Total 1.6 mg/dl (0.2-1.3); Blood Urea Nitrogen 12 mg/dl (7-17); Calcium 9.7 mg/dl (8.4-10.2); Carbon Dioxide 27 mmol/L (22.0-30.0); Creatine Kinase 50 U/L (30-135); Creatinine Clearance Estimated 118 mL/min (50-200); Estimated Glomerular Filt Rate 87 ml/min (>60); GFR (African American) 105 ML/MIN (>60); Globulin 2.7 g/dL (1.3-3.2); Glucose 197 mg/dl (74-100); Magnesium 1.6 mg/dl (1.6-2.3); Phosphorous 2.9 mg/dl (2.5-4.5); Total Protein,Serum 7.4 g/dl (6.3-8.2)
[2024-03-11 12:30] VITALS: BP 95/66; PULSE 78; RESP 14; O2SAT 100
[2024-03-11] MEDS: ONDANSETRON 4MG/2ML VIAL 4 MG IV (12:31)
--- NOTE | 2024-03-11 12:31 | PC.NURSE ---
pt to ct scan
[2024-03-11 12:46] LABS: Free Thyroxine Index 2.6 ug/dL (5.93-13.13); T4 (Thyroxine) 8.2 ug/dl (5.53-11.0); Triiodothryronine (T3) Uptake 32 % (23.5-40.5)
[2024-03-11 12:48] LABS: Microscopic, Urine URINE MICROSCOPIC (MICROSCOPIC)
--- NOTE | 2024-03-11 12:49 | PC.NURSE ---
Ashely from ct called stating pt has severe nausea with vomiting with IV contrast but she gets Benadryl IV and can tolerate it better. I s/w Dr. Stone regarding this reaction and states she will cx the contrast studies. I also also assisted pt to the bathroom to get a urine sample. Stayed with pt for safety. She tolerating ambulating well, although slightly dizzy and has a bad headache. I let KATHRYN know of this.
[2024-03-11 12:50] LABS: Appearance,Urine CLEAR (Clear); Blood, Urine Negative (Negative); Color,Urine YELLOW (Yellow); Glucose,Urine (UA) TRACE (Negative); Ketones,Urine Negative (Negative); Leukocyte Esterase,Urine Negative (Negative); Nitrate,Urine Negative (Negative); Protein,Urine TRACE (Negative)
[2024-03-11 12:57] LABS: HIV Combo NEGATIVE (Negative)
[2024-03-11 13:04] LABS: Bilirubin,Urine 1+ (Negative)
[2024-03-11 13:05] LABS: Hepatitis C Ab Qual. W/ RFX NEGATIVE (Negative)
[2024-03-11] MEDS: MAGNESIUM OXIDE 400MG TABLET 800 MG PO (13:08)
[2024-03-11] MEDS: MAGNESIUM SULFATE IN WATER 2 GM/50 ML PIGGYBACK IV (13:08)
[2024-03-11] MEDS: ACETAMINOPHEN 1,000MG/100ML VIAL 1000 MG IV (13:08)
[2024-03-11 13:10] LABS: Amphetamine/Metha Screen,Urine Negative ng/ml (<1000)
[2024-03-11 13:11] LABS: Barbiturates Screen,Urine Negative ng/ml (<200); Benzodiazepines Screen,Urine Negative ng/ml (<200)
[2024-03-11 13:12] LABS: Methadone Screen,Urine Negative ng/ml (<300)
[2024-03-11 13:13] LABS: Cannabinoid Screen,Urine Positive ng/ml (<50); Cocaine Screen,Urine Negative ng/ml (<300)
--- NOTE | 2024-03-11 13:13 | PC.NURSE ---
pt given warm blanket for comfort
[2024-03-11 13:14] LABS: Opiate Screen,Urine Negative ng/ml (<300)
[2024-03-11 13:15] LABS: Phencyclidine Screen,Urine Negative ng/ml (<25)
[2024-03-11 13:18] LABS: Amorphous Sediment,Urine Trace /lpf; Bacteria,Urine Trace /lpf; WBC,Urine Occasional #/hpf (0-3)
[2024-03-11 13:23] LABS: Thyroid Stimulating Hormone 1.64 uIU/mL (0.465-4.68)
[2024-03-11 14:13] VITALS: BP 120/80; PULSE 80; RESP 13; TEMP 36.8; O2SAT 98
== END 2024-03-11 14:21 | disposition home or self-care (01) ==
PROVIDERS: Physician Assistant; Emergency Provider Emergency Medicine; PCP Nurse Practitioner Family
DX: E83.42 Hypomagnesemia (principal); R56.9 Unspecified convulsions; M54.9 Dorsalgia, unspecified; R51.9 Headache, unspecified; R53.1 Weakness; R41.9 Unspecified symptoms and signs involving cognitive functions and awareness
CPT/HCPCS: 70450; 80053; 80307; 81001; 82550; 83735; 84100; 84436; 84443; 84479; 85025; 86803; 87389; 93005; 96365; 96374; 96375; 99284; J0131; J2405; J3475